=== PATIENT | female | born 1960 | race Caucasian/White ===

== ENCOUNTER → 2016-12-02 | Outpatient (CLI) | payer BC ==
[~2016-12-02] VITALS: Ht 170.2 cm; Wt 81.6 kg
[~2016-12-02] MED LIST: AMLO5TAB2 PO; ASPI81CH PO; ATIV1TAB10 PO; ATOR40TA PO; CYMB1CAP4 PO; LIDOCAINE 2% INJ 100 MG/5 ML SDV (FOR ANES.) As Ordered ONE; MULT1TAB10 PO; PROPOFOL 500 MG/50 ML VIAL As Ordered ONE; PROTPAK PO; VITA-115 PO
--- NOTE | 2016-12-02 11:22 | ROOR ---
Patient Name: Aliya Armendariz Procedure Date: 12/02/2016 10:54 AM Date of : 1960 Age: 56 Room: [facility] Gender: Female Note Status: Finalized Procedure: Colonoscopy Indications: Screening for colorectal malignant neoplasm Providers: Matthew JIMÉNEZ MD Referring MD: Carmella HENLEY MD Requesting Provider: Medicines: Monitored Anesthesia Care Complications: No immediate complications. Procedure: Pre-Anesthesia Assessment: - The heart rate, respiratory rate, oxygen saturations, blood pressure, adequacy of pulmonary ventilation, and response to care were monitored throughout the procedure. The Colonoscope was introduced through the anus and advanced to the cecum, identified by appendiceal orifice and ileocecal valve. The colonoscopy was performed without difficulty. The patient tolerated the procedure well. The quality of the bowel preparation was fair. Findings: The perianal and digital rectal examinations were normal. A 5 mm polyp was found at the hepatic flexure. The polyp was sessile. The polyp was removed with a cold snare. Resection and retrieval were complete. Two sessile polyps were found in the sigmoid colon. The polyps were 5 to 6 mm in size. These polyps were removed with a cold snare. Resection and retrieval were complete. A 7 mm polyp was found in the rectum. The polyp was semi-sessile. The polyp was removed with a cold snare. Resection and retrieval were complete. To prevent bleeding after the polypectomy, two hemostatic clips were successfully placed (MR conditional). Multiple small-mouthed diverticula were found in the sigmoid colon. Internal hemorrhoids were found during retroflexion. The hemorrhoids were medium-sized. (EXAM: Complete, PREP:Adequate) Impression: - One 5 mm polyp at the hepatic flexure, removed with a cold snare. Resected and retrieved. - Two 5 to 6 mm polyps in the sigmoid colon, removed with a cold snare. Resected and retrieved. - One 7 mm polyp in the rectum, removed with a cold snare. Resected and retrieved. Clips (MR conditional) were placed. - Mild diverticulosis in the sigmoid colon. - Moderate Internal hemorrhoids. Recommendation: - Repeat colonoscopy in 3 years for surveillance. - Await pathology results. - Telephone endoscopist for pathology results in 2 weeks. Matthew Jiménez MD Matthew JIMÉNEZ MD 12/02/2016 11:22:23 AM This report has been signed electronically. Number of Addenda: 0 Note Initiated On: 12/02/2016 10:54 AM Estimated Blood Loss: Estimated blood loss: none.
[2016-12-02 11:50] VITALS: BP 150/88
== END ==
LOC: M OPP 09:20
PROVIDERS: ATTEND Internal Medicine Gastroenterology
DX: Z12.11 Encounter for screening for malignant neoplasm of colon (principal); D12.3 Benign neoplasm of transverse colon; D12.5 Benign neoplasm of sigmoid colon; D12.8 Benign neoplasm of rectum; K57.30 Diverticulosis of large intestine without perforation or abscess without bleeding; K62.5 Hemorrhage of anus and rectum; K64.0 First degree hemorrhoids; M25.50 Pain in unspecified joint; I25.2 Old myocardial infarction; E78.5 Hyperlipidemia, unspecified; J45.909 Unspecified asthma, uncomplicated; M19.90 Unspecified osteoarthritis, unspecified site; M32.9 Systemic lupus erythematosus, unspecified; F32.9 Major depressive disorder, single episode, unspecified; M35.1 Other overlap syndromes; R12 Heartburn; M79.7 Fibromyalgia; K44.9 Diaphragmatic hernia without obstruction or gangrene; Z79.82 Long term (current) use of aspirin; Z79.51 Long term (current) use of inhaled steroids; Z86.19 Personal history of other infectious and parasitic diseases; Z79.899 Other long term (current) drug therapy; I10 Essential (primary) hypertension; Z87.891 Personal history of nicotine dependence; F41.9 Anxiety disorder, unspecified; R06.83 Snoring

== ENCOUNTER 2016-12-05 13:56 | Emergency (ER) | payer BC ==
[~2016-12-05 13:56] MED LIST changes: -LIDOCAINE 2% INJ 100 MG/5 ML SDV (FOR ANES.) As Ordered ONE; -PROPOFOL 500 MG/50 ML VIAL As Ordered ONE
[2016-12-05 15:49] LABS: BASO % 0.4 % (0.0-1.0); EOS # 0.1 K/mm3 (0.0-0.50); LARGE UNSTAINED CELL # 0.2 K/mm3 (0.0-0.4); LYMPH # 1.4 K/mm3 (1.5-4.5); LYMPH % 22.6 % (24.0-44.0); MEAN CORPUSCULAR HEMOGLOBIN 31.9 pg (27.0-33.0); MEAN CORPUSCULAR HGB CONC 35.1 g/dl (32.0-36.5); MONO # 0.5 K/mm3 (0.0-0.8); MONO % 8.8 % (0.0-5.0); NEUTROPHILS # 3.9 K/mm3 (1.8-7.7); NEUTROPHILS % 63.2 % (36.0-66.0); PLATELET COUNT, AUTOMATED 195 k/mm3 (150-450); RED CELL DISTRIBUTION WIDTH 11.5 % (11.5-14.5); WHITE BLOOD COUNT 6.1 K/mm3 (4.0-10.0)
[2016-12-05 15:58] LABS: ALBUMIN 3.6 GM/DL (3.2-5.2); ALBUMIN/GLOBULIN RATIO 1.33 (1.00-1.93); ALKALINE PHOSPHATASE 88 U/L (45-117); ALT/SGPT 104 U/L (12-78); ANION GAP 11 MEQ/L (8-16); AST/SGOT 66 U/L (15-37); BILIRUBIN,DIRECT 0.4 MG/DL (0.0-0.2); BILIRUBIN,TOTAL 2.2 MG/DL (0.2-1.0); BLOOD UREA NITROGEN 18 MG/DL (7-18); CALCIUM LEVEL 10.1 MG/DL (8.5-10.1); CARBON DIOXIDE LEVEL 25 MEQ/L (21-32); CHLORIDE LEVEL 106 MEQ/L (98-107); CREATININE FOR GFR 0.66 MG/DL (0.55-1.02); GLOMERULAR FILTRATION RATE > 60.0 (>51); GLUCOSE, FASTING 106 MG/DL (70-105); POTASSIUM SERUM 4.6 MEQ/L (3.5-5.1); SODIUM LEVEL 142 MEQ/L (136-145); TOTAL PROTEIN 6.3 GM/DL (6.4-8.2)
--- NOTE | 2016-12-05 16:41 | REP ---
ABDOMEN, FLAT AND UPRIGHT, PA CHEST: HISTORY: Abdominal pain. Air is present in small and large intestine. Several air fluid levels are present. There are no dilated loops of intestine. There is no pneumoperitoneum. The lungs are clear. IMPRESSION: Nonspecific bowel gas pattern. Signed by Zach Couch MD 12/05/2016 05:06 P
--- NOTE | 2016-12-05 17:29 | REP ---
RIGHT UPPER QUADRANT ULTRASOUND: Real-time sonographic evaluation of the right upper quadrant is performed. Gallbladder shows no evidence of intraluminal sludge or calculi, wall thickening or pericholecystic fluid. There is no intrahepatic or extrahepatic biliary dilatation. Common bile duct measuring 3 mm in diameter. Surveyed images of the liver demonstrate diffuse heterogenous increased echotexture suggesting diffuse fibrofatty infiltration. No liver or pancreatic mass is seen. Pancreas is not optimally seen due to overlying bowel gas. Right kidney demonstrates no hydronephrosis or nephrolithiasis with normal size of 10.8 cm in length. IMPRESSION: Probable fibrofatty infiltration of the liver, otherwise negative right upper quadrant ultrasound. Signed by Siddhartha Silver MD 12/05/2016 05:31 P
[2016-12-05] MEDS ORDERED: ACETAMINOPHEN 325 MG TAB As Ordered ONE (20:39)
--- NOTE | 2016-12-05 21:50 | REPUSA ---
CT of the chest without contrast Clinical statement: cough, fever. Technique: Multiple axial CT images were obtained with 5 mm cuts through the chest without administra tion of contrast. Coronal and sagittal reconstructions were also obtained. No comparison is available. Findings: There is no thoracic lymphadenopathy. The visualized portions of the thyroid gland is unrem arkable. There are no pericardial or pleural effusions. The lungs are clear. Limited imaging of the u pper abdomen does not demonstrate any acute abnormalities. There are no suspicious osseous lesions. Impression: Unremarkable CT examination of the chest.
--- NOTE | 2016-12-05 22:00 | REPUSA ---
CT of the abdomen and pelvis without contrast Clinical statement: Pain. Diverticulitis. Technique: Multiple axial CT images were obtained from the base of the lungs to the floor of the pelv is utilizing 5 mm axial slices without administration of contrast. Coronal and sagittal reconstructio ns were also obtained. No comparison is available. Findings: Chest: The visualized lung bases are clear. Abdomen: The kidneys are normal in size bilaterally. There is a small simple cyst in the lower pole o f the right kidney. There is no evidence of hydronephrosis. A 2 mm nonobstructing stone is seen in th e left kidney. The liver, spleen, pancreas, gallbladder and adrenal glands are unremarkable. The aort a demonstrates normal caliber and contour. There is no abdominal lymphadenopathy or ascites. Pelvis: The bowel is unremarkable, with no obstructive or inflammatory changes. The appendix is michael l. The urinary bladder is within normal limits. There is no pelvic lymphadenopathy or ascites. The ot her pelvic structures appear unremarkable. Bones: There are no suspicious osseous abnormalities seen. Impression: Unremarkable CT examination of the abdomen and pelvis. No acute findings to explain the p atient's pain. 2 mm nonobstructing stone in the left renal collecting system.
--- NOTE | 2016-12-05 22:33 | EDDOCDS ---
Physician Documentation [facility] Name: Aliya Armendariz Age: 56 yrs Sex: Female : 1960 Arrival Date: 12/05/2016 Time: 13:56 Bed 7 Private MD: Carmella De Oliveira M. Disposition: 12/05 22:06 Critical Care: Critical care not applicable. pc Disposition: 12/05/16 22:13 Discharged to Home/Self Care. Impression: Acute upper respiratory infection, unspecified - viral, Dehydration - resolved, Disorder of bilirubin metabolism, unspecified, Fatty (change of) liver, not elsewhere classified. - Condition is Stable. - Discharge Instructions: Upper Respiratory Infection, Adult, Viral Infections. - Medication Reconciliation, Local Pharmacy Hours form. - Follow up: Carmella De Oliveira; When: 2 - 3 days; Reason: Recheck today's complaints, Continuance of care. Follow up: Matthew Palumbo; When: Call to arrange an appointment; Reason: Continuance of care. - Problem is new. - Symptoms have improved. HPI: 15:41 This 56 yrs old Female presents to ER via Walkin/Carried/Asstd with pc complaints of weakness. 15:41 The history is obtained from the patient. She has had URI symptoms, with body aches and pc feeling "generally crappy" for 8 days. She had a colonoscopy only 3 days, while still feeling sick, and has felt worse since. She has occasional white sputum production, but complains mostly of sinus pressure and congestion. She has not had an appetite and did not eat at all yesterday, tolerating minimal po fluids only. This morning she awoke and felt nauseated, vomited once, and none since. She was seen by her PCP who directed her here due to her pulse being fast. She denies any fevers or chills, has occasional abdominal cramping but no diarrhea, denies symptoms. The patient has been recently seen by a technology methodology consultant. Historical: - Allergies: no known allergies; - Home Meds: 1. amlodipine 5 mg Oral tab 1 tab once daily (Last dose: 12/05/2016 07:00) 2. aspirin 81 mg Oral tab 1 tab once daily (Last dose: 12/05/2016 07:00) 3. atorvastatin 40 mg oral tab 1 tab once daily (Last dose: 12/05/2016 07:00) 4. Cymbalta 20 mg Oral cpDR 1 cap 2 times per day (Last dose: 12/05/2016 07:00) 5. Protonix 40 mg Oral TbEC 1 tab once daily (Last dose: 12/05/2016 07:00) - PMHx: Hypertension; Hepatitis B; hyperlipidemia; Depression; GERD; - PSHx: Colonoscopy; bilateral heel spurs; - The history from nurses notes was reviewed: and I agree with what is documented. - Social history: Smoking status: Patient states former smoker of tobacco. No barriers to communication noted, The patient speaks fluent Marshallese. - Family history: Not pertinent. - : The pt / caregiver states he / she is not on anticoagulants. Home medication list is obtained from the patient. - Hospitalizations: : No recent hospitalization is reported. - Exposure Risk Screening:: None identified. - Immunization history:: All immunizations up-to-date. - Social history:: the patient is a non-smoker, the patient does not drink alcohol. ROS: 15:41 All systems are negative except as listed. pc Exam: 15:41 General Appearance: no acute distress, alert. pc 15:41 EENT: normal eye inspection, ears, nose and throat normal, mucous membranes dry. 15:41 Neck: The exam reveals no acute abnormalities. ROM is normal and painless. No nuchal rigidity is noted.. 15:41 Respiratory: no respiratory distress, normal breath sounds. 15:41 CVS: regular rhythm, normal S1 and S2, no murmurs, strong peripheral pulses, normal capillary refill, the patient is tachycardic, at 124 bpm. 15:41 Abdomen: soft, no organomegaly, normal bowel sounds, mild tenderness in the epigastric area, without rebound, voluntary guarding is not appreciated, involuntary guarding is not appreciated. 15:41 Back: normal inspection. 15:41 : bladder is non-distended, non-tender. 15:41 Skin: skin color is normal, warm, dry. 15:41 Extremities: The extremities have a grossly normal appearance, are non-tender, without acute ROM abnormalities. 15:41 Neuro: oriented x 3, cranial nerves normal as tested, no motor deficits, no sensory deficits. 15:41 Psych: normal mood. Vital Signs: 13:59 BP 189 / 80; Pulse 120; Resp 18; Temp 99.1; Pulse Ox 99% ; Weight 83.46 kg / 184 lbs; elp Height 5 ft. 7 in. (170.18 cm); Pain 2/10; 16:34 Pulse 114 MON; Pulse Ox 97% ; jmk 16:49 BP 125 / 79 (auto/); jmk 18:58 BP 143 / 79; Pulse 103; Resp 16; jmk 19:15 BP 128 / 70 (auto/); kmg1 19:15 Pulse 106 MON; Pulse Ox 98% ; kmg1 19:51 BP 141 / 79 (auto/); kmg1 19:51 Pulse 118 MON; Pulse Ox 94% ; kmg1 20:06 BP 138 / 82 (auto/); kmg1 20:06 Pulse 116 MON; Pulse Ox 96% ; kmg1 20:21 BP 120 / 66 (auto/); kmg1 20:21 Pulse 118 MON; Resp 18; Temp 101(TE); Pulse Ox 96% ; kmg1 20:51 BP 145 / 87 (auto/); kmg1 20:51 Pulse 116 MON; Pulse Ox 96% ; kmg1 21:06 BP 133 / 77 (auto/); kmg1 21:06 Pulse 104 MON; Pulse Ox 97% ; kmg1 21:17 Pulse 106 MON; Pulse Ox 98% ; kmg1 21:18 Temp 99.8(TE); kmg1 21:21 BP 159 / 66 (auto/); kmg1 21:21 Pulse 104 MON; Pulse Ox 98% ; kmg1 21:36 BP 138 / 70 (auto/); kmg1 21:36 Pulse 108 MON; Pulse Ox 98% ; kmg1 21:51 BP 131 / 63 (auto/); kmg1 21:51 Pulse 106 MON; Pulse Ox 96% ; kmg1 22:06 BP 136 / 72 (auto/); kmg1 22:06 Pulse 106 MON; Pulse Ox 98% ; kmg1 22:31 BP 120 / 68; Pulse 109; Resp 18; Temp 96.5(O); Pulse Ox 96% on R/A; Pain 0/10; kmg1 13:59 Body Mass Index 28.82 (83.46 kg, 170.18 cm) elp MDM: 14:18 ECG WITH READING ER PHYS+CARDIAG ordered. EDMS 15:40 IV Saline Lock ordered. pc 15:40 Obtain sample by nasopharyngeal swab ordered. pc 15:40 NS 0.9% 1000 ml IV at bolus once ordered. pc 15:41 CBC with Diff Ordered. EDMS 15:41 MED Profile Ordered. EDMS 15:41 Liver Profile Ordered. EDMS 15:41 -Influenza A&B Rapid Antigen - Nose Ordered. EDMS 15:41 Differential Diagnosis: URI r/o pneumonia/influenza; dehydration; s/p colonoscopy. pc Plan: labs, imaging, IVF. 15:43 Abdomen, Flat\\E\\Upright,PA Chest Ordered. EDMS 15:47 Test interpretation: EKG. pc 15:57 CARDIAC MARKER PANEL Ordered. EDMS 16:09 CBC with Diff Reviewed. pc 16:09 MED Profile Reviewed. pc 16:09 Liver Profile Reviewed. pc 16:09 -Influenza A&B Rapid Antigen - Nose Reviewed. pc 16:11 CARDIAC MARKER PANEL Reviewed. pc 16:21 Financial registration complete. zo 16:23 MED Profile Reviewed. pc 16:23 Liver Profile Reviewed. pc 16:23 CARDIAC MARKER PANEL Reviewed. pc 16:26 Liver US Ordered. EDMS 16:36 [facility] Payment Agreement was scanned into [employer] and attached to record. zo 18:01 NS 0.9% 1000 ml IV at bolus once ordered. pc 18:30 Data reviewed: The patient's [facility] records were accessed, as they were informed. pc 20:19 Vital Signs ordered. pc 20:19 Abdomen, Flat\\E\\Upright,PA Chest Reviewed. pc 20:19 Liver US Reviewed. pc 20:38 Acetaminophen Tablet 650 mg PO once ordered. pc 20:40 CT ABD & PELVIS: No Contrast Ordered. EDMS 20:42 CT Chest Without Contrast Ordered. EDMS 22:06 Test interpretation: LAB - all labs as ordered have been reviewed, interpreted and pc considered in the overall management of the clinical presentation; X-RAY - interpreted by Radiologist and personally reviewed, 3-view abdomen series; no acute disease, Ultrasound - interpreted by Radiologist, Gallbladder fatty liver only. 22:06 Test interpretation: interpreted by Radiologist and personally reviewed, Abdomen/Pelvis pc CT; no acute disease, Chest CT; normal. The patient has been re-examined and re-evaluated. The patient's symptoms have markedly improved after treatment, with her tolerating fluids, is afebrile. Disposition: The historical points, examination findings, and any diagnostic results supporting the provided diagnosis, were discussed with the patient or legal guardian. The need for outpatient follow up with the provider listed on their discharge instructions was discussed. They were encouraged to return to [facility], or the nearest ED, if symptoms worsen/persist, or for any other questions/concerns. EC:47 Rate is 115 beats/min. Rhythm is regular, Sinus tachycardia. QRS [place] is Normal. [place] pc interval is normal. QRS interval is normal. QT interval is normal. Q waves are Old in leads III, aVF. T waves are Normal. No ST changes noted. Clinical impression: Sinus tachycardia and Inferior MN - age indeterminate. Administered Medications: 15:43 Drug: NS 0.9% 1000 ml Route: IV; Rate: bolus; Site: right antecubital; [facility] 16:51 Follow up: IV Status: Completed infusion; IV Intake: 1000ml [facility] 18:18 Drug: NS 0.9% 1000 ml Route: IV; Rate: bolus; Site: right antecubital; [facility] 19:27 Follow up: IV Status: Completed infusion; IV Intake: 1000ml [facility] 21:05 Drug: Acetaminophen 650 mg [acetaminophen 325 mg tablet (2 tabs)] Route: PO; kmg1 Signatures: Dispatcher [employer] EDMS Yohan Cummins MD MD pc Garrison, Kelly RN RN km Alvino Rice,JOSEY RN Kayden Jacobson Matthew, RN RN [id number] The chart was reviewed and I authenticate all verbal orders and agree with the evaluation and treatment provided.Corrections: (The following items were deleted from the chart) 15:57 15:50 CARDIAC INJURY PROFILE+LAB ordered. EDTN EDTN 15:57 15:50 TROPONIN+LAB ordered. EDTN EDMS Attachments: 16:36 [facility] Payment Agreement zo [employer]
--- NOTE | 2016-12-05 22:33 | EDDOCDS ---
Nurse's Notes [facility] Name: Aliya Armendariz Age: 56 yrs Sex: Female : 1960 Arrival Date: 12/05/2016 Time: 13:56 Bed 7 Private MD: Carmella De Oliveira M. Diagnosis: Acute upper respiratory infection, unspecified-viral;Dehydration-resolved;Disorder of bilirubin metabolism, unspecified;Fatty (change of) liver, not elsewhere classified Presentation: 12/05 14:02 Presenting complaint: Patient states: states that she had a colonoscopy Thursday, states ml6 that felt nauseated, and diaphoretic, advised to come here. Adult Sepsis Screening: The patient does not have new or worsening altered mentation. Patient's respiratory rate is less than 22. Systolic blood pressure is greater than 100. Patient has a qSOFA score of 0- Negative Sepsis Screen. Suicide/Homicide risk assessment- the patient denies having any suicidal and/or homicidal ideations and does not present with any other emotional, behavioral or mental health complaints. Status: Patient is not a pest control service technician or dependent. Transition of care: patient was not received from another setting of care. 14:02 Acuity: ELIA Level 3 ml6 14:02 Method Of Arrival: Walkin/Carried/Asstd ml6 Triage Assessment: 14:02 General: Appears in no apparent distress, comfortable, Behavior is appropriate for age, ml6 cooperative. Pain: Denies pain. HIV screening NA for this visit Offered previously. Neurological: No deficits noted. Level of Consciousness is awake, alert, Oriented to person, place, time. Cardiovascular: No deficits noted. Capillary refill < 3 seconds is brisk in bilateral fingers toes Heart tones S1 S2 present. Respiratory: No deficits noted. Historical: - Allergies: no known allergies; - Home Meds: 1. amlodipine 5 mg Oral tab 1 tab once daily (Last dose: 12/05/2016 07:00) 2. aspirin 81 mg Oral tab 1 tab once daily (Last dose: 12/05/2016 07:00) 3. atorvastatin 40 mg oral tab 1 tab once daily (Last dose: 12/05/2016 07:00) 4. Cymbalta 20 mg Oral cpDR 1 cap 2 times per day (Last dose: 12/05/2016 07:00) 5. Protonix 40 mg Oral TbEC 1 tab once daily (Last dose: 12/05/2016 07:00) - PMHx: Hypertension; Hepatitis B; hyperlipidemia; Depression; GERD; - PSHx: Colonoscopy; bilateral heel spurs; - The history from nurses notes was reviewed: and I agree with what is documented. - Social history: Smoking status: Patient states former smoker of tobacco. No barriers to communication noted, The patient speaks fluent Romansh. - Family history: Not pertinent. - : The pt / caregiver states he / she is not on anticoagulants. Home medication list is obtained from the patient. - Hospitalizations: : No recent hospitalization is reported. - Exposure Risk Screening:: None identified. - Immunization history:: All immunizations up-to-date. - Social history:: the patient is a non-smoker, the patient does not drink alcohol. Screenin:01 Screening information is obtained from the patient. Fall risk: No risks identified. jmk Assistance ADL's: requires no assistance with activities of daily living. Abuse/DV Screen: The patient / caregiver reports he/she is: not in a situation that causes fear, pain or injury. Nutritional screening: No deficits noted. home support is adequate. 15:01 Advance Directives: Currently, there is no health care proxy. There is no active DNR jmk order. There is no living will. There is no Power of Manager Of Application Development. Advance directive information has not previously been placed in an [facility] medical record. Further advance directive information is declined. Assessment: 15:01 General: Appears in no apparent distress, skin warm and dry color satisfactory. Moist jmk pink oral mucosa. Abdomen soft and non distended with bowel sounds present x 4. slight fullness to upper abdomen with palpation. Monitor is st without ectopy. Unaware of rapid heart rate at 118.. 16:49 General: Appears bolus infused. Overall presentation is unchanged. Monitor is SR jmk without ectopy. remains jovial and conversive.. 18:58 General: Appears popsicle taken and retained. Bolus continues.. jmk 19:25 General: Appears in no apparent distress, comfortable, Behavior is appropriate for age, kmg1 cooperative, pleasant. Pain: Denies pain. Cardiovascular: Rhythm is sinus tachycardia No ectopy. Respiratory: Airway is patent Respiratory effort is even, unlabored, Respiratory pattern is regular, symmetrical. 20:30 General: Appears in no apparent distress, comfortable, Behavior is crying, Patient kmg1 tearful. Diaphoretic. Temp 101. made aware. 21:30 Reassessment: Patient appears in no apparent distress at this time. Patient denies pain kmg1 at this time. Patient states feeling better. Patient states symptoms have improved. 22:29 General: Appears in no apparent distress, comfortable, Behavior is appropriate for age, kmg1 cooperative, pleasant. Pain: Denies pain. Cardiovascular: Rhythm is sinus tachycardia No ectopy. Respiratory: Airway is patent Respiratory effort is even, unlabored, Respiratory pattern is regular, symmetrical. Vital Signs: 13:59 BP 189 / 80; Pulse 120; Resp 18; Temp 99.1; Pulse Ox 99% ; Weight 83.46 kg; Height 5 elp ft. 7 in. (170.18 cm); Pain 2/10; 16:34 Pulse 114 MON; Pulse Ox 97% ; jmk 16:49 BP 125 / 79 (auto/); jmk 18:58 BP 143 / 79; Pulse 103; Resp 16; jmk 19:15 BP 128 / 70 (auto/); kmg1 19:15 Pulse 106 MON; Pulse Ox 98% ; kmg1 19:51 BP 141 / 79 (auto/); kmg1 19:51 Pulse 118 MON; Pulse Ox 94% ; kmg1 20:06 BP 138 / 82 (auto/); kmg1 20:06 Pulse 116 MON; Pulse Ox 96% ; kmg1 20:21 BP 120 / 66 (auto/); kmg1 20:21 Pulse 118 MON; Resp 18; Temp 101(TE); Pulse Ox 96% ; kmg1 20:51 BP 145 / 87 (auto/); kmg1 20:51 Pulse 116 MON; Pulse Ox 96% ; kmg1 21:06 BP 133 / 77 (auto/); kmg1 21:06 Pulse 104 MON; Pulse Ox 97% ; kmg1 21:17 Pulse 106 MON; Pulse Ox 98% ; kmg1 21:18 Temp 99.8(TE); kmg1 21:21 BP 159 / 66 (auto/); kmg1 21:21 Pulse 104 MON; Pulse Ox 98% ; kmg1 21:36 BP 138 / 70 (auto/); kmg1 21:36 Pulse 108 MON; Pulse Ox 98% ; kmg1 21:51 BP 131 / 63 (auto/); kmg1 21:51 Pulse 106 MON; Pulse Ox 96% ; kmg1 22:06 BP 136 / 72 (auto/); g1 22:06 Pulse 106 MON; Pulse Ox 98% ; g1 22:31 BP 120 / 68; Pulse 109; Resp 18; Temp 96.5(O); Pulse Ox 96% on R/A; Pain 0/10; kmg1 13:59 Body Mass Index 28.82 (83.46 kg, 170.18 cm) elp Vitals: 13:59 Log In Time: December 05, 2016 at 13:57. RN notified that patient meets Red Flag elp criteria. ED Course: 13:58 Patient visited by Chinyere Okeefe PCA. elp 13:58 Carmella De Oliveira is Private Physician. elp 13:58 Patient moved to Waiting elp 14:01 Patient visited by Chinyere Okeefe PCA. elp 14:06 Patient moved to 7 elp 14:13 Triage Initiated ml6 14:29 EKG done. (by ED staff). Reviewed by Santy Monzon MD. jrd 14:30 Patient visited by Horace Villalobos PCA. jrd 15:01 The patient / caregiver is instructed regarding the plan of care and ED course. Cardiac jmk monitor on. Pulse ox on. 15:01 Inserted saline lock: 20 gauge in right antecubital area. No procedures done that jmk require assistance. 15:10 Patient visited by Lily Diaz, JOSEY. jjr 15:21 Yohan Cummins MD is Attending Physician. pc 15:36 Patient visited by Yohan Cummins MD. pc 15:43 Liver Profile Sent. jmk 15:43 MED Profile Sent. jmk 15:43 CBC with Diff Sent. jmk 15:48 -Influenza A&B Rapid Antigen - Nose Sent. jmk 16:32 Patient moved to Ultrasound am17 16:36 [facility] Payment Agreement was scanned into [employer] and attached to record. zo 16:47 Patient moved to 7 am17 16:48 Patient visited by Yohan Cummins MD. pc 16:50 Patient visited by Alvino Rice,JOSEY. jmk 17:02 Abdomen, Flat\E\Upright,PA Chest Returned. EDMS 17:50 Liver US Returned. EDMS 18:07 Patient visited by Yohan Cummins MD. pc 19:07 Patient visited by Harlan Chowdhury PCA. kb5 19:08 Sandee Wilson RN is Primary Nurse. kmg1 19:27 Patient visited by Sandee Wilson RN. kmg1 20:06 Patient visited by Harlan Chowdhury PCA. kb5 21:02 Patient visited by Harlan Chowdhury PCA. kb5 22:00 CT Chest Without Contrast Returned. EDMS 22:06 Patient visited by Yohan Cummins MD. pc 22:12 Carmella De Oliveira is Referral Physician. pc 22:12 Matthew Palumbo is Referral Physician. pc Administered Medications: 15:43 Drug: NS 0.9% 1000 ml Route: IV; Rate: bolus; Site: right antecubital; jmk 16:51 Follow up: IV Status: Completed infusion; IV Intake: 1000ml jmk 18:18 Drug: NS 0.9% 1000 ml Route: IV; Rate: bolus; Site: right antecubital; jmk 19:27 Follow up: IV Status: Completed infusion; IV Intake: 1000ml kmg1 21:05 Drug: Acetaminophen 650 mg [acetaminophen 325 mg tablet (2 tabs)] Route: PO; km Intake: 16:51 IV: 1000.00ml (NS); Total: 1000.00ml. jmk 16:51 IV: 1000.00ml; Total: 2000.00ml. jmk 19:27 IV: 1000.00ml; Total: 3000.00ml. km Order Results: Lab Order: CBC with Diff; SPEC'M 12/05/16 14:52 Test: WHITE BLOOD COUNT; Value: 6.1; Range: 4.0-10.0; Units: K/mm3; Status: F Test: RED BLOOD COUNT; Value: 4.23; Range: 4.00-5.40; Units: M/mm3; Status: F Test: HEMOGLOBIN; Value: 13.5; Range: 12.0-16.0; Units: g/dl; Status: F Test: HEMATOCRIT; Value: 38.5; Range: 36.0-47.0; Units: %; Status: F Test: MEAN CORPUSCULAR VOLUME; Value: 91.0; Range: 80.0-96.0; Units: fl; Status: F Test: MEAN CORPUSCULAR HEMOGLOBIN; Value: 31.9; Range: 27.0-33.0; Units: pg; Status: F Test: MEAN CORPUSCULAR HGB CONC; Value: 35.1; Range: 32.0-36.5; Units: g/dl; Status: F Test: RED CELL DISTRIBUTION WIDTH; Value: 11.5; Range: 11.5-14.5; Units: %; Status: F Test: PLATELET COUNT, AUTOMATED; Value: 195; Range: 150-450; Units: k/mm3; Status: F Test: NEUTROPHILS %; Value: 63.2; Range: 36.0-66.0; Units: %; Status: F Test: LYMPH %; Value: 22.6; Range: 24.0-44.0; Abnormal: Below low normal; Units: %; Status: F Test: MONO %; Value: 8.8; Range: 0.0-5.0; Abnormal: Above high normal; Units: %; Status: F Test: EOS %; Value: 2.0; Range: 0.0-3.0; Units: %; Status: F Test: BASO %; Value: 0.4; Range: 0.0-1.0; Units: %; Status: F Test: LARGE UNSTAINED CELL %; Value: 3.0; Range: 0.0-4.0; Units: %; Status: F Test: NEUTROPHILS #; Value: 3.9; Range: 1.8-7.7; Units: K/mm3; Status: F Test: LYMPH #; Value: 1.4; Range: 1.5-4.5; Abnormal: Below low normal; Units: K/mm3; Status: F Test: MONO #; Value: 0.5; Range: 0.0-0.8; Units: K/mm3; Status: F Test: EOS #; Value: 0.1; Range: 0.0-0.50; Units: K/mm3; Status: F Test: BASO #; Value: 0.0; Range: 0.0-0.2; Units: K/mm3; Status: F Test: LARGE UNSTAINED CELL #; Value: 0.2; Range: 0.0-0.4; Units: K/mm3; Status: F Lab Order: MED Profile; SPEC'M 12/05/16 14:52 Test: GLUCOSE, FASTING; Value: 106; Range: 70-105; Abnormal: Above high normal; Units: MG/DL; Status: F Test: BLOOD UREA NITROGEN; Value: 18; Range: 7-18; Units: MG/DL; Status: F Test: CREATININE FOR GFR; Value: 0.66; Range: 0.55-1.02; Units: MG/DL; Status: F Test: GLOMERULAR FILTRATION RATE; Value: > 60.0; Range: >51; Status: F Test: SODIUM LEVEL; Value: 142; Range: 136-145; Units: MEQ/L; Status: F Test: POTASSIUM SERUM; Value: 4.6; Range: 3.5-5.1; Units: MEQ/L; Status: F Test: CHLORIDE LEVEL; Value: 106; Range: 98-107; Units: MEQ/L; Status: F Test: CARBON DIOXIDE LEVEL; Value: 25; Range: 21-32; Units: MEQ/L; Status: F Test: ANION GAP; Value: 11; Range: 8-16; Units: MEQ/L; Status: F Test: CALCIUM LEVEL; Value: 10.1; Range: 8.5-10.1; Units: MG/DL; Status: F Test Note: ; Units are mL/min/1.73 m2 Chronic Kidney Disease Staging per NKF: Stage I & II GFR >=60 Normal to Mildly Decreased Stage III GFR 30-59 Moderately Decreased Stage IV GFR 15-29 Severely Decreased Stage V GFR <15 Very Little GFR Left ESRD GFR <15 on SERVICES MGR Lab Order: Liver Profile; SPEC'M 12/05/16 14:52 Test: AST/SGOT; Value: 66; Range: 15-37; Abnormal: Above high normal; Units: U/L; Status: F Test: ALT/SGPT; Value: 104; Range: 12-78; Abnormal: Above high normal; Units: U/L; Status: F Test: ALKALINE PHOSPHATASE; Value: 88; Range: 45-117; Units: U/L; Status: F Test: BILIRUBIN,TOTAL; Value: 2.2; Range: 0.2-1.0; Abnormal: Above high normal; Units: MG/DL; Status: F Test: BILIRUBIN,DIRECT; Value: 0.4; Range: 0.0-0.2; Abnormal: Above high normal; Units: MG/DL; Status: F Test: TOTAL PROTEIN; Value: 6.3; Range: 6.4-8.2; Abnormal: Below low normal; Units: GM/DL; Status: F Test: ALBUMIN; Value: 3.6; Range: 3.2-5.2; Units: GM/DL; Status: F Test: ALBUMIN/GLOBULIN RATIO; Value: 1.33; Range: 1.00-1.93; Status: F Lab Order: -Influenza A&B Rapid Antigen - Nose; SPEC'M 12/05/16 15:47 Test: INFLUENZA A RAPID SCR by ICA; Value: INFLUENZA A RESULTS NEGATIVE; Status: F Test: INFLUENZA A RAPID SCR by ICA; Value: Comments:; Status: F Test: INFLUENZA B RAPID SCR by ICA; Value: INFLUENZA B RESULTS NEGATIVE; Status: F Test Note: ; The Influenza test is a direct rapid immunoassay for the qualitative detection of Influenza viral antigen. Cell culture (Viral Culture) testing should be considered to confirm NEGATIVE results and to assist in detecting other viruses that can provide similar clinical symptoms. Please contact the lab within 24 hours ([phone] if confirmatory testing is desired. Lab Order: CARDIAC MARKER PANEL; SPEC'M 12/05/16 14:52 Test: CPK CREATINE PHOSPHOKINASE; Value: 84; Range: 26-192; Units: U/L; Status: F Test: CK-MB VALUE MASS; Value: 1.0; Range: 0.0-3.6; Units: NG/ML; Status: F Test: MB/CK RELATIVE INDEX; Value: 1.19; Range: < OR =4; Status: F Test: TROPONIN I; Value: < 0.02; Range: < 0.10; Units: NG/ML; Status: F Test Note: ; DIAGNOSIS CRITERIA MMB ng/ml Relative Index (RI) NON-AMI < or = 5 N/A SILVER ZONE > 5 < or = 4 AMI > 5 > 4 Radiology Order: Abdomen, Flat\E\Upright,PA Chest Test: Abdomen, Flat\E\Upright,PA Chest REASON FOR EXAMINATION: abd pain after colonoscopy; ABDOMEN, FLAT AND UPRIGHT, PA CHEST:; ; HISTORY: Abdominal pain.; ; Air is present in small and large intestine. Several air fluid levels are; present. There are no dilated loops of intestine. There is no pneumoperitoneum.; The lungs are clear.; ; IMPRESSION:; ; Nonspecific bowel gas pattern.; ; ; Signed by; Zach Couch MD 12/05/2016 05:06 P; Radiology Order: Liver US Test: Liver US REASON FOR EXAMINATION: elevated LFTs; RIGHT UPPER QUADRANT ULTRASOUND:; ; Real-time sonographic evaluation of the right upper quadrant is performed.; Gallbladder shows no evidence of intraluminal sludge or calculi, wall thickening; or pericholecystic fluid. There is no intrahepatic or extrahepatic biliary; dilatation. Common bile duct measuring 3 mm in diameter. Surveyed images of the; liver demonstrate diffuse heterogenous increased echotexture suggesting diffuse; fibrofatty infiltration. No liver or pancreatic mass is seen. Pancreas is not; optimally seen due to overlying bowel gas. Right kidney demonstrates no; hydronephrosis or nephrolithiasis with normal size of 10.8 cm in length.; ; IMPRESSION:; ; Probable fibrofatty infiltration of the liver, otherwise negative right upper; quadrant ultrasound.; ; ; Signed by; Siddhartha Silver MD 12/05/2016 05:31 P; Radiology Order: CT Chest Without Contrast Test: CT Chest Without Contrast REASON FOR EXAMINATION: cough, fever; ; CT of the chest without contrast; Clinical statement: cough, fever.; Technique: Multiple axial CT images were obtained with 5 mm cuts through the chest without administra; tion of contrast. Coronal and sagittal reconstructions were also obtained.; No comparison is available.; Findings: There is no thoracic lymphadenopathy. The visualized portions of the thyroid gland is unrem; arkable. There are no pericardial or pleural effusions. The lungs are clear. Limited imaging of the u; pper abdomen does not demonstrate any acute abnormalities. There are no suspicious osseous lesions.; Impression: Unremarkable CT examination of the chest.; ; Outcome: 22:13 Discharge ordered by Provider. pc 22:31 Discharge Assessment: Patient awake, alert and oriented x 3. No cognitive and/or kmg1 functional deficits noted. Patient verbalized understanding of disposition instructions. Patient awake and alert. patient administered narcotics - no. The following High Risk Discharge criteria are identified: None. Discharged to home ambulatory, with significant other. Condition: stable. CT Study completed. Ultrasound Study completed. Property sent home with patient. 22:32 Patient left the ED. [facility] [place] Signatures: Dispatcher [employer] EDMS Yohan Cummins MD MD pc Garrison, Kelly, RN RN km Alvino Rice,RN RN [facility] Kayden Raza Kristopher, VINEYARDIST VINEYARDIST kb5 Lily Diaz RN RN jjr Lowe, Matthew RN RN ml6 Chinyere Okeefe, VINEYARDIST VINEYARDIST denip Bebe Becker am17 Horace Villalobos, VINEYARDIST VINEYARDIST jrd Corrections: (The following items were deleted from the chart) 15:57 15:50 TROPONIN+LAB sent. [facility] EDWV 15:57 15:50 CARDIAC INJURY PROFILE+LAB sent. [facility] EDWV 20:38 20:21 Pulse 118bpm; Monitor; Pulse Ox 96%; [place] [id number] [facility]
--- NOTE | 2016-12-06 08:35 | ECGEPIP ---
Stationary ECG Study [facility] - ED Test Date: 2016-12-05 Pat Name: ANETA WILD Department: Room: - Gender: F Director Financial Services: albert : 1960 Requested By: QUINTON Pride Order Number: [id number] Reading MD: Nicolle Rueda Measurements Intervals [place] Rate: 116 P: 56 TX: 148 QRS: 6 QRSD: 64 T: 27 QT: 286 QTc: 399 Interpretive Statements SINUS TACHYCARDIA ?INFERIOR AL AGE NO PRIOR FOR COMPARISON ABNORMAL RHYTHM ECG Electronically Signed On 12-06-2016 8:35:10 EST by Nicolle Rueda
--- NOTE | 2016-12-09 10:05 | EDDOCDS ---
Physician Documentation [facility] Name: Aliya Armendariz Age: 56 yrs Sex: Female : 1960 Arrival Date: 12/05/2016 Time: 13:56 Bed 7 Private MD: Carmella De Oliveira M. Disposition: 12/05 22:06 Critical Care: Critical care not applicable. pc Disposition: 12/05/16 22:13 Discharged to Home/Self Care. Impression: Acute upper respiratory infection, unspecified - viral, Dehydration - resolved, Disorder of bilirubin metabolism, unspecified, Fatty (change of) liver, not elsewhere classified. - Condition is Stable. - Discharge Instructions: Upper Respiratory Infection, Adult, Viral Infections. - Medication Reconciliation, Local Pharmacy Hours form. - Follow up: Carmella De Oliveira; When: 2 - 3 days; Reason: Recheck today's complaints, Continuance of care. Follow up: Matthew Palumbo; When: Call to arrange an appointment; Reason: Continuance of care. - Problem is new. - Symptoms have improved. HPI: 15:41 This 56 yrs old Female presents to ER via Walkin/Carried/Asstd with pc complaints of weakness. 15:41 The history is obtained from the patient. She has had URI symptoms, with body aches and pc feeling "generally crappy" for 8 days. She had a colonoscopy only 3 days, while still feeling sick, and has felt worse since. She has occasional white sputum production, but complains mostly of sinus pressure and congestion. She has not had an appetite and did not eat at all yesterday, tolerating minimal po fluids only. This morning she awoke and felt nauseated, vomited once, and none since. She was seen by her PCP who directed her here due to her pulse being fast. She denies any fevers or chills, has occasional abdominal cramping but no diarrhea, denies symptoms. The patient has been recently seen by a residential builder. Historical: - Allergies: no known allergies; - Home Meds: 1. amlodipine 5 mg Oral tab 1 tab once daily (Last dose: 12/05/2016 07:00) 2. aspirin 81 mg Oral tab 1 tab once daily (Last dose: 12/05/2016 07:00) 3. atorvastatin 40 mg oral tab 1 tab once daily (Last dose: 12/05/2016 07:00) 4. Cymbalta 20 mg Oral cpDR 1 cap 2 times per day (Last dose: 12/05/2016 07:00) 5. Protonix 40 mg Oral TbEC 1 tab once daily (Last dose: 12/05/2016 07:00) - PMHx: Hypertension; Hepatitis B; hyperlipidemia; Depression; GERD; - PSHx: Colonoscopy; bilateral heel spurs; - The history from nurses notes was reviewed: and I agree with what is documented. - Social history: Smoking status: Patient states former smoker of tobacco. No barriers to communication noted, The patient speaks fluent [place]. - Family history: Not pertinent. - : The pt / caregiver states he / she is not on anticoagulants. Home medication list is obtained from the patient. - Hospitalizations: : No recent hospitalization is reported. - Exposure Risk Screening:: None identified. - Immunization history:: All immunizations up-to-date. - Social history:: the patient is a non-smoker, the patient does not drink alcohol. ROS: 15:41 All systems are negative except as listed. pc Exam: 15:41 General Appearance: no acute distress, alert. pc 15:41 EENT: normal eye inspection, ears, nose and throat normal, mucous membranes dry. 15:41 Neck: The exam reveals no acute abnormalities. ROM is normal and painless. No nuchal rigidity is noted.. 15:41 Respiratory: no respiratory distress, normal breath sounds. 15:41 CVS: regular rhythm, normal S1 and S2, no murmurs, strong peripheral pulses, normal capillary refill, the patient is tachycardic, at 124 bpm. 15:41 Abdomen: soft, no organomegaly, normal bowel sounds, mild tenderness in the epigastric area, without rebound, voluntary guarding is not appreciated, involuntary guarding is not appreciated. 15:41 Back: normal inspection. 15:41 : bladder is non-distended, non-tender. 15:41 Skin: skin color is normal, warm, dry. 15:41 Extremities: The extremities have a grossly normal appearance, are non-tender, without acute ROM abnormalities. 15:41 Neuro: oriented x 3, cranial nerves normal as tested, no motor deficits, no sensory deficits. 15:41 Psych: normal mood. Vital Signs: 13:59 BP 189 / 80; Pulse 120; Resp 18; Temp 99.1; Pulse Ox 99% ; Weight 83.46 kg / 184 lbs; elp Height 5 ft. 7 in. (170.18 cm); Pain 2/10; 16:34 Pulse 114 MON; Pulse Ox 97% ; jmk 16:49 BP 125 / 79 (auto/); jmk 18:58 BP 143 / 79; Pulse 103; Resp 16; jmk 19:15 BP 128 / 70 (auto/); kmg1 19:15 Pulse 106 MON; Pulse Ox 98% ; kmg1 19:51 BP 141 / 79 (auto/); kmg1 19:51 Pulse 118 MON; Pulse Ox 94% ; kmg1 20:06 BP 138 / 82 (auto/); kmg1 20:06 Pulse 116 MON; Pulse Ox 96% ; kmg1 20:21 BP 120 / 66 (auto/); kmg1 20:21 Pulse 118 MON; Resp 18; Temp 101(TE); Pulse Ox 96% ; kmg1 20:51 BP 145 / 87 (auto/); kmg1 20:51 Pulse 116 MON; Pulse Ox 96% ; kmg1 21:06 BP 133 / 77 (auto/); kmg1 21:06 Pulse 104 MON; Pulse Ox 97% ; kmg1 21:17 Pulse 106 MON; Pulse Ox 98% ; kmg1 21:18 Temp 99.8(TE); kmg1 21:21 BP 159 / 66 (auto/); kmg1 21:21 Pulse 104 MON; Pulse Ox 98% ; kmg1 21:36 BP 138 / 70 (auto/); kmg1 21:36 Pulse 108 MON; Pulse Ox 98% ; kmg1 21:51 BP 131 / 63 (auto/); kmg1 21:51 Pulse 106 MON; Pulse Ox 96% ; kmg1 22:06 BP 136 / 72 (auto/); kmg1 22:06 Pulse 106 MON; Pulse Ox 98% ; kmg1 22:31 BP 120 / 68; Pulse 109; Resp 18; Temp 96.5(O); Pulse Ox 96% on R/A; Pain 0/10; kmg1 13:59 Body Mass Index 28.82 (83.46 kg, 170.18 cm) elp MDM: 14:18 ECG WITH READING ER PHYS+CARDIAG ordered. EDMS 15:40 IV Saline Lock ordered. pc 15:40 Obtain sample by nasopharyngeal swab ordered. pc 15:40 NS 0.9% 1000 ml IV at bolus once ordered. pc 15:41 CBC with Diff Ordered. EDMS 15:41 MED Profile Ordered. EDMS 15:41 Liver Profile Ordered. EDMS 15:41 -Influenza A&B Rapid Antigen - Nose Ordered. EDMS 15:41 Differential Diagnosis: URI r/o pneumonia/influenza; dehydration; s/p colonoscopy. pc Plan: labs, imaging, IVF. 15:43 Abdomen, Flat\\E\\Upright,PA Chest Ordered. EDMS 15:47 Test interpretation: EKG. pc 15:57 CARDIAC MARKER PANEL Ordered. EDMS 16:09 CBC with Diff Reviewed. pc 16:09 MED Profile Reviewed. pc 16:09 Liver Profile Reviewed. pc 16:09 -Influenza A&B Rapid Antigen - Nose Reviewed. pc 16:11 CARDIAC MARKER PANEL Reviewed. pc 16:21 Financial registration complete. zo 16:23 MED Profile Reviewed. pc 16:23 Liver Profile Reviewed. pc 16:23 CARDIAC MARKER PANEL Reviewed. pc 16:26 Liver US Ordered. EDMS 16:36 [facility] Payment Agreement was scanned into [employer] and attached to record. zo 18:01 NS 0.9% 1000 ml IV at bolus once ordered. pc 18:30 Data reviewed: The patient's [facility] records were accessed, as they were informed. pc 20:19 Vital Signs ordered. pc 20:19 Abdomen, Flat\\E\\Upright,PA Chest Reviewed. pc 20:19 Liver US Reviewed. pc 20:38 Acetaminophen Tablet 650 mg PO once ordered. pc 20:40 CT ABD & PELVIS: No Contrast Ordered. EDMS 20:42 CT Chest Without Contrast Ordered. EDMS 22:06 Test interpretation: LAB - all labs as ordered have been reviewed, interpreted and pc considered in the overall management of the clinical presentation; X-RAY - interpreted by Radiologist and personally reviewed, 3-view abdomen series; no acute disease, Ultrasound - interpreted by Radiologist, Gallbladder fatty liver only. 22:06 Test interpretation: interpreted by Radiologist and personally reviewed, Abdomen/Pelvis pc CT; no acute disease, Chest CT; normal. The patient has been re-examined and re-evaluated. The patient's symptoms have markedly improved after treatment, with her tolerating fluids, is afebrile. Disposition: The historical points, examination findings, and any diagnostic results supporting the provided diagnosis, were discussed with the patient or legal guardian. The need for outpatient follow up with the provider listed on their discharge instructions was discussed. They were encouraged to return to [facility], or the nearest ED, if symptoms worsen/persist, or for any other questions/concerns. 12/06 10:27 ECG/EKG was scanned into [employer] and attached to record. 10:28 Radiology Report was scanned into [employer] and attached to record. EC/06 15:47 Rate is 115 beats/min. Rhythm is regular, Sinus tachycardia. QRS [place] is Normal. ID pc interval is normal. QRS interval is normal. QT interval is normal. Q waves are Old in leads III, aVF. T waves are Normal. No ST changes noted. Clinical impression: Sinus tachycardia and Inferior PA - age indeterminate. Administered Medications: 15:43 Drug: NS 0.9% 1000 ml Route: IV; Rate: bolus; Site: right antecubital; [facility] 16:51 Follow up: IV Status: Completed infusion; IV Intake: 1000ml [facility] 18:18 Drug: NS 0.9% 1000 ml Route: IV; Rate: bolus; Site: right antecubital; [facility] 19:27 Follow up: IV Status: Completed infusion; [place] [facility] [place] Drug: Acetaminophen 650 mg [acetaminophen 325 mg tablet (2 tabs)] Route: PO; kmg1 Signatures: Dispatcher [employer] EDMS Yohan Cummins MD MD pc Garrison, Kelly, RN RN kmg1 Alvino Rice,RN RN Kyleigh Reeves, Kayden Kitchen Matthew, RN RN ml6 The chart was reviewed and I authenticate all verbal orders and agree with the evaluation and treatment provided.Corrections: (The following items were deleted from the chart) 15:57 15:50 CARDIAC INJURY PROFILE+LAB ordered. EDAL EDMS 15:57 15:50 TROPONIN+LAB ordered. EDAL EDMS Attachments: 16:36 [facility] [place] Payment Agreement zo 12/06 10:27 ECG/EKG Chart Complete MTDD
--- NOTE | 2016-12-09 10:05 | EDDOCDS ---
Nurse's Notes [facility] Name: Aneta Armendariz Age: 56 yrs Sex: Female : 1960 Arrival Date: 12/05/2016 Time: 13:56 Bed 7 Private MD: Carmella De Oliveira M. Diagnosis: Acute upper respiratory infection, unspecified-viral;Dehydration-resolved;Disorder of bilirubin metabolism, unspecified;Fatty (change of) liver, not elsewhere classified Presentation: 12/05 14:02 Presenting complaint: Patient states: states that she had a colonoscopy Thursday, states ml6 that felt nauseated, and diaphoretic, advised to come here. Adult Sepsis Screening: The patient does not have new or worsening altered mentation. Patient's respiratory rate is less than 22. Systolic blood pressure is greater than 100. Patient has a qSOFA score of 0- Negative Sepsis Screen. Suicide/Homicide risk assessment- the patient denies having any suicidal and/or homicidal ideations and does not present with any other emotional, behavioral or mental health complaints. Status: Patient is not a service attendant cafeteria or dependent. Transition of care: patient was not received from another setting of care. 14:02 Acuity: ELIA Level 3 ml6 14:02 Method Of Arrival: Walkin/Carried/Asstd ml6 Triage Assessment: 14:02 General: Appears in no apparent distress, comfortable, Behavior is appropriate for age, ml6 cooperative. Pain: Denies pain. HIV screening NA for this visit Offered previously. Neurological: No deficits noted. Level of Consciousness is awake, alert, Oriented to person, place, time. Cardiovascular: No deficits noted. Capillary refill < 3 seconds is brisk in bilateral fingers toes Heart tones S1 S2 present. Respiratory: No deficits noted. Historical: - Allergies: no known allergies; - Home Meds: 1. amlodipine 5 mg Oral tab 1 tab once daily (Last dose: 12/05/2016 07:00) 2. aspirin 81 mg Oral tab 1 tab once daily (Last dose: 12/05/2016 07:00) 3. atorvastatin 40 mg oral tab 1 tab once daily (Last dose: 12/05/2016 07:00) 4. Cymbalta 20 mg Oral cpDR 1 cap 2 times per day (Last dose: 12/05/2016 07:00) 5. Protonix 40 mg Oral TbEC 1 tab once daily (Last dose: 12/05/2016 07:00) - PMHx: Hypertension; Hepatitis B; hyperlipidemia; Depression; GERD; - PSHx: Colonoscopy; bilateral heel spurs; - The history from nurses notes was reviewed: and I agree with what is documented. - Social history: Smoking status: Patient states former smoker of tobacco. No barriers to communication noted, The patient speaks fluent Slovak. - Family history: Not pertinent. - : The pt / caregiver states he / she is not on anticoagulants. Home medication list is obtained from the patient. - Hospitalizations: : No recent hospitalization is reported. - Exposure Risk Screening:: None identified. - Immunization history:: All immunizations up-to-date. - Social history:: the patient is a non-smoker, the patient does not drink alcohol. Screenin:01 Screening information is obtained from the patient. Fall risk: No risks identified. jmk Assistance ADL's: requires no assistance with activities of daily living. Abuse/DV Screen: The patient / caregiver reports he/she is: not in a situation that causes fear, pain or injury. Nutritional screening: No deficits noted. home support is adequate. 15:01 Advance Directives: Currently, there is no health care proxy. There is no active DNR jmk order. There is no living will. There is no Power of Hvac Design Mechanical Engineer. Advance directive information has not previously been placed in an [facility] medical record. Further advance directive information is declined. Assessment: 15:01 General: Appears in no apparent distress, skin warm and dry color satisfactory. Moist jmk pink oral mucosa. Abdomen soft and non distended with bowel sounds present x 4. slight fullness to upper abdomen with palpation. Monitor is st without ectopy. Unaware of rapid heart rate at 118.. 16:49 General: Appears bolus infused. Overall presentation is unchanged. Monitor is SR jmk without ectopy. remains jovial and conversive.. 18:58 General: Appears popsicle taken and retained. Bolus continues.. jmk 19:25 General: Appears in no apparent distress, comfortable, Behavior is appropriate for age, kmg1 cooperative, pleasant. Pain: Denies pain. Cardiovascular: Rhythm is sinus tachycardia No ectopy. Respiratory: Airway is patent Respiratory effort is even, unlabored, Respiratory pattern is regular, symmetrical. 20:30 General: Appears in no apparent distress, comfortable, Behavior is crying, Patient kmg1 tearful. Diaphoretic. Temp 101. made aware. 21:30 Reassessment: Patient appears in no apparent distress at this time. Patient denies pain kmg1 at this time. Patient states feeling better. Patient states symptoms have improved. 22:29 General: Appears in no apparent distress, comfortable, Behavior is appropriate for age, kmg1 cooperative, pleasant. Pain: Denies pain. Cardiovascular: Rhythm is sinus tachycardia No ectopy. Respiratory: Airway is patent Respiratory effort is even, unlabored, Respiratory pattern is regular, symmetrical. Vital Signs: 13:59 BP 189 / 80; Pulse 120; Resp 18; Temp 99.1; Pulse Ox 99% ; Weight 83.46 kg; Height 5 elp ft. 7 in. (170.18 cm); Pain 2/10; 16:34 Pulse 114 MON; Pulse Ox 97% ; jmk 16:49 BP 125 / 79 (auto/); jmk 18:58 BP 143 / 79; Pulse 103; Resp 16; jmk 19:15 BP 128 / 70 (auto/); kmg1 19:15 Pulse 106 MON; Pulse Ox 98% ; kmg1 19:51 BP 141 / 79 (auto/); kmg1 19:51 Pulse 118 MON; Pulse Ox 94% ; kmg1 20:06 BP 138 / 82 (auto/); kmg1 20:06 Pulse 116 MON; Pulse Ox 96% ; kmg1 20:21 BP 120 / 66 (auto/); kmg1 20:21 Pulse 118 MON; Resp 18; Temp 101(TE); Pulse Ox 96% ; kmg1 20:51 BP 145 / 87 (auto/); kmg1 20:51 Pulse 116 MON; Pulse Ox 96% ; kmg1 21:06 BP 133 / 77 (auto/); kmg1 21:06 Pulse 104 MON; Pulse Ox 97% ; kmg1 21:17 Pulse 106 MON; Pulse Ox 98% ; kmg1 21:18 Temp 99.8(TE); kmg1 21:21 BP 159 / 66 (auto/); kmg1 21:21 Pulse 104 MON; Pulse Ox 98% ; kmg1 21:36 BP 138 / 70 (auto/); kmg1 21:36 Pulse 108 MON; Pulse Ox 98% ; kmg1 21:51 BP 131 / 63 (auto/); kmg1 21:51 Pulse 106 MON; Pulse Ox 96% ; kmg1 22:06 BP 136 / 72 (auto/); g1 22:06 Pulse 106 MON; Pulse Ox 98% ; g1 22:31 BP 120 / 68; Pulse 109; Resp 18; Temp 96.5(O); Pulse Ox 96% on R/A; Pain 0/10; kmg1 13:59 Body Mass Index 28.82 (83.46 kg, 170.18 cm) elp Vitals: 13:59 Log In Time: December 05, 2016 at 13:57. RN notified that patient meets Red Flag elp criteria. ED Course: 13:58 Patient visited by Chinyere Okeefe PCA. elp 13:58 Carmella De Oliveira is Private Physician. elp 13:58 Patient moved to Waiting elp 14:01 Patient visited by Chinyere Okeefe PCA. elp 14:06 Patient moved to 7 elp 14:13 Triage Initiated ml6 14:29 EKG done. (by ED staff). Reviewed by Quinton Monzon MD. jrd 14:30 Patient visited by Horace Villalobos PCA. jrd 15:01 The patient / caregiver is instructed regarding the plan of care and ED course. Cardiac jmk monitor on. Pulse ox on. 15:01 Inserted saline lock: 20 gauge in right antecubital area. No procedures done that jmk require assistance. 15:10 Patient visited by Lily Diaz, JOSEY. jjr 15:21 Yohan Cummins MD is Attending Physician. pc 15:36 Patient visited by Yohan Cummins MD. pc 15:43 Liver Profile Sent. jmk 15:43 MED Profile Sent. jmk 15:43 CBC with Diff Sent. jmk 15:48 -Influenza A&B Rapid Antigen - Nose Sent. jmk 16:32 Patient moved to Ultrasound am17 16:36 [facility] Payment Agreement was scanned into [employer] and attached to record. zo 16:47 Patient moved to 7 am17 16:48 Patient visited by Yohan Cummins MD. pc 16:50 Patient visited by Alvino Rice,JOSEY. jmk 17:02 Abdomen, Flat\E\Upright,PA Chest Returned. EDMS 17:50 Liver US Returned. EDMS 18:07 Patient visited by Yohan Cummins MD. pc 19:07 Patient visited by Harlan Chowdhury PCA. kb5 19:08 Sandee Wilson, RN is Primary Nurse. kmg1 19:27 Patient visited by Sandee Wilson RN. kmg1 20:06 Patient visited by Harlan Chowdhury PCA. kb5 21:02 Patient visited by Harlan Chowdhury PCA. kb5 22:00 CT Chest Without Contrast Returned. EDMS 22:06 Patient visited by Yohan Cummins MD. pc 22:12 Carmella De Olievira is Referral Physician. pc 22:12 Matthew Palumbo is Referral Physician. pc 22:52 CT ABD & PELVIS: No Contrast Returned. EDMS 01 08:39 EKG-ADULT Returned. EDMS 10:27 ECG/EKG was scanned into [employer] and attached to record. gb 10:28 Radiology Report was scanned into [employer] and attached to record. gb Administered Medications: 12/05 15:43 Drug: NS 0.9% 1000 ml Route: IV; Rate: bolus; Site: right antecubital; k 16:51 Follow up: IV Status: Completed infusion; IV Intake: 1000ml [facility] 18:18 Drug: NS 0.9% 1000 ml Route: IV; Rate: bolus; Site: right antecubital; k 19:27 Follow up: IV Status: Completed infusion; IV Intake: 1000[place] [facility] 21:05 Drug: Acetaminophen 650 mg [acetaminophen 325 mg tablet (2 tabs)] Route: PO; [facility] Intake: 16:51 IV: 1000.00ml (NS); Total: 1000.00ml. k 16:51 IV: 1000.00ml; Total: 2000.00ml. k 19:27 IV: 1000.00ml; Total: 3000.00ml. km Order Results: Lab Order: CBC with Diff; SPEC'M 12/05/16 14:52 Test: WHITE BLOOD COUNT; Value: 6.1; Range: 4.0-10.0; Units: K/mm3; Status: F Test: RED BLOOD COUNT; Value: 4.23; Range: 4.00-5.40; Units: M/mm3; Status: F Test: HEMOGLOBIN; Value: 13.5; Range: 12.0-16.0; Units: g/dl; Status: F Test: HEMATOCRIT; Value: 38.5; Range: 36.0-47.0; Units: %; Status: F Test: MEAN CORPUSCULAR VOLUME; Value: 91.0; Range: 80.0-96.0; Units: fl; Status: F Test: MEAN CORPUSCULAR HEMOGLOBIN; Value: 31.9; Range: 27.0-33.0; Units: pg; Status: F Test: MEAN CORPUSCULAR HGB CONC; Value: 35.1; Range: 32.0-36.5; Units: g/dl; Status: F Test: RED CELL DISTRIBUTION WIDTH; Value: 11.5; Range: 11.5-14.5; Units: %; Status: F Test: PLATELET COUNT, AUTOMATED; Value: 195; Range: 150-450; Units: k/mm3; Status: F Test: NEUTROPHILS %; Value: 63.2; Range: 36.0-66.0; Units: %; Status: F Test: LYMPH %; Value: 22.6; Range: 24.0-44.0; Abnormal: Below low normal; Units: %; Status: F Test: MONO %; Value: 8.8; Range: 0.0-5.0; Abnormal: Above high normal; Units: %; Status: F Test: EOS %; Value: 2.0; Range: 0.0-3.0; Units: %; Status: F Test: BASO %; Value: 0.4; Range: 0.0-1.0; Units: %; Status: F Test: LARGE UNSTAINED CELL %; Value: 3.0; Range: 0.0-4.0; Units: %; Status: F Test: NEUTROPHILS #; Value: 3.9; Range: 1.8-7.7; Units: K/mm3; Status: F Test: LYMPH #; Value: 1.4; Range: 1.5-4.5; Abnormal: Below low normal; Units: K/mm3; Status: F Test: MONO #; Value: 0.5; Range: 0.0-0.8; Units: K/mm3; Status: F Test: EOS #; Value: 0.1; Range: 0.0-0.50; Units: K/mm3; Status: F Test: BASO #; Value: 0.0; Range: 0.0-0.2; Units: K/mm3; Status: F Test: LARGE UNSTAINED CELL #; Value: 0.2; Range: 0.0-0.4; Units: K/mm3; Status: F Lab Order: MED Profile; SPEC'M 12/05/16 14:52 Test: GLUCOSE, FASTING; Value: 106; Range: 70-105; Abnormal: Above high normal; Units: MG/DL; Status: F Test: BLOOD UREA NITROGEN; Value: 18; Range: 7-18; Units: MG/DL; Status: F Test: CREATININE FOR GFR; Value: 0.66; Range: 0.55-1.02; Units: MG/DL; Status: F Test: GLOMERULAR FILTRATION RATE; Value: > 60.0; Range: >51; Status: F Test: SODIUM LEVEL; Value: 142; Range: 136-145; Units: MEQ/L; Status: F Test: POTASSIUM SERUM; Value: 4.6; Range: 3.5-5.1; Units: MEQ/L; Status: F Test: CHLORIDE LEVEL; Value: 106; Range: 98-107; Units: MEQ/L; Status: F Test: CARBON DIOXIDE LEVEL; Value: 25; Range: 21-32; Units: MEQ/L; Status: F Test: ANION GAP; Value: 11; Range: 8-16; Units: MEQ/L; Status: F Test: CALCIUM LEVEL; Value: 10.1; Range: 8.5-10.1; Units: MG/DL; Status: F Test Note: ; Units are mL/min/1.73 m2 Chronic Kidney Disease Staging per NKF: Stage I & II GFR >=60 Normal to Mildly Decreased Stage III GFR 30-59 Moderately Decreased Stage IV GFR 15-29 Severely Decreased Stage V GFR <15 Very Little GFR Left ESRD GFR <15 on CRUSHER AND BLENDER OPERATOR Lab Order: Liver Profile; SPEC'M 12/05/16 14:52 Test: AST/SGOT; Value: 66; Range: 15-37; Abnormal: Above high normal; Units: U/L; Status: F Test: ALT/SGPT; Value: 104; Range: 12-78; Abnormal: Above high normal; Units: U/L; Status: F Test: ALKALINE PHOSPHATASE; Value: 88; Range: 45-117; Units: U/L; Status: F Test: BILIRUBIN,TOTAL; Value: 2.2; Range: 0.2-1.0; Abnormal: Above high normal; Units: MG/DL; Status: F Test: BILIRUBIN,DIRECT; Value: 0.4; Range: 0.0-0.2; Abnormal: Above high normal; Units: MG/DL; Status: F Test: TOTAL PROTEIN; Value: 6.3; Range: 6.4-8.2; Abnormal: Below low normal; Units: GM/DL; Status: F Test: ALBUMIN; Value: 3.6; Range: 3.2-5.2; Units: GM/DL; Status: F Test: ALBUMIN/GLOBULIN RATIO; Value: 1.33; Range: 1.00-1.93; Status: F Lab Order: -Influenza A&B Rapid Antigen - Nose; SPEC'M 12/05/16 15:47 Test: INFLUENZA A RAPID SCR by ICA; Value: INFLUENZA A RESULTS NEGATIVE; Status: F Test: INFLUENZA A RAPID SCR by ICA; Value: Comments:; Status: F Test: INFLUENZA B RAPID SCR by ICA; Value: INFLUENZA B RESULTS NEGATIVE; Status: F Test Note: ; The Influenza test is a direct rapid immunoassay for the qualitative detection of Influenza viral antigen. Cell culture (Viral Culture) testing should be considered to confirm NEGATIVE results and to assist in detecting other viruses that can provide similar clinical symptoms. Please contact the lab within 24 hours ([phone]) if confirmatory testing is desired. Lab Order: CARDIAC MARKER PANEL; SPEC'M 12/05/16 14:52 Test: CPK CREATINE PHOSPHOKINASE; Value: 84; Range: 26-192; Units: U/L; Status: F Test: CK-MB VALUE MASS; Value: 1.0; Range: 0.0-3.6; Units: NG/ML; Status: F Test: MB/CK RELATIVE INDEX; Value: 1.19; Range: < OR =4; Status: F Test: TROPONIN I; Value: < 0.02; Range: < 0.10; Units: NG/ML; Status: F Test Note: ; DIAGNOSIS CRITERIA MMB ng/ml Relative Index (RI) NON-AMI < or = 5 N/A SILVER ZONE > 5 < or = 4 AMI > 5 > 4 Radiology Order: EKG-ADULT Test: EKG-ADULT REASON FOR EXAMINATION: palpitations; Stationary ECG Study; [facility] - ED; ; Test Date: 2016-12-05; Pat Name: ANETA ARMENDARIZ Department:; Room: -; Gender: F Infant Lead Teacher: albert; : 1960 Requested By: QUINTON Pride; Order Number: [id number] Reading MD: Nicolle Rueda; Measurements; Intervals [place]; Rate: 116 P: 56; WY: 148 QRS: 6; QRSD: 64 T: 27; QT: 286; QTc: 399; Interpretive Statements; SINUS TACHYCARDIA; ?INFERIOR VT AGE; NO PRIOR FOR COMPARISON; ABNORMAL RHYTHM ECG; ; Electronically Signed On 12-06-2016 8:35:10 EST by Nicolle Rueda; Radiology Order: Abdomen, Flat\E\Upright,PA Chest Test: Abdomen, Flat\E\Upright,PA Chest REASON FOR EXAMINATION: abd pain after colonoscopy; ABDOMEN, FLAT AND UPRIGHT, PA CHEST:; ; HISTORY: Abdominal pain.; ; Air is present in small and large intestine. Several air fluid levels are; present. There are no dilated loops of intestine. There is no pneumoperitoneum.; The lungs are clear.; ; IMPRESSION:; ; Nonspecific bowel gas pattern.; ; ; Signed by; Zach Couch MD 12/05/2016 05:06 P; Radiology Order: Liver US Test: Liver US REASON FOR EXAMINATION: elevated LFTs; RIGHT UPPER QUADRANT ULTRASOUND:; ; Real-time sonographic evaluation of the right upper quadrant is performed.; Gallbladder shows no evidence of intraluminal sludge or calculi, wall thickening; or pericholecystic fluid. There is no intrahepatic or extrahepatic biliary; dilatation. Common bile duct measuring 3 mm in diameter. Surveyed images of the; liver demonstrate diffuse heterogenous increased echotexture suggesting diffuse; fibrofatty infiltration. No liver or pancreatic mass is seen. Pancreas is not; optimally seen due to overlying bowel gas. Right kidney demonstrates no; hydronephrosis or nephrolithiasis with normal size of 10.8 cm in length.; ; IMPRESSION:; ; Probable fibrofatty infiltration of the liver, otherwise negative right upper; quadrant ultrasound.; ; ; Signed by; Siddhartha Silver MD 12/05/2016 05:31 P; Radiology Order: CT ABD & PELVIS: No Contrast Test: CT ABD & PELVIS: No Contrast REASON FOR EXAMINATION: Diverticulitis; ; CT of the abdomen and pelvis without contrast; Clinical statement: Pain. Diverticulitis.; Technique: Multiple axial CT images were obtained from the base of the lungs to the floor of the pelv; is utilizing 5 mm axial slices without administration of contrast. Coronal and sagittal reconstructio; ns were also obtained.; No comparison is available.; Findings:; Chest: The visualized lung bases are clear.; Abdomen: The kidneys are normal in size bilaterally. There is a small simple cyst in the lower pole o; f the right kidney. There is no evidence of hydronephrosis. A 2 mm nonobstructing stone is seen in th; e left kidney. The liver, spleen, pancreas, gallbladder and adrenal glands are unremarkable. The aort; a demonstrates normal caliber and contour. There is no abdominal lymphadenopathy or ascites.; Pelvis: The bowel is unremarkable, with no obstructive or inflammatory changes. The appendix is michael; l. The urinary bladder is within normal limits. There is no pelvic lymphadenopathy or ascites. The ot; her pelvic structures appear unremarkable.; Bones: There are no suspicious osseous abnormalities seen.; Impression: Unremarkable CT examination of the abdomen and pelvis. No acute findings to explain the p; atient's pain. 2 mm nonobstructing stone in the left renal collecting system.; ; Radiology Order: CT Chest Without Contrast Test: CT Chest Without Contrast REASON FOR EXAMINATION: cough, fever; ; CT of the chest without contrast; Clinical statement: cough, fever.; Technique: Multiple axial CT images were obtained with 5 mm cuts through the chest without administra; tion of contrast. Coronal and sagittal reconstructions were also obtained.; No comparison is available.; Findings: There is no thoracic lymphadenopathy. The visualized portions of the thyroid gland is unrem; arkable. There are no pericardial or pleural effusions. The lungs are clear. Limited imaging of the u; pper abdomen does not demonstrate any acute abnormalities. There are no suspicious osseous lesions.; Impression: Unremarkable CT examination of the chest.; ; Outcome: 22:13 Discharge ordered by Provider. pc 22:31 Discharge Assessment: Patient awake, alert and oriented x 3. No cognitive and/or [facility] functional deficits noted. Patient verbalized understanding of disposition instructions. Patient awake and alert. patient administered narcotics - no. The following High Risk Discharge criteria are identified: None. Discharged to home ambulatory, with significant other. Condition: stable. CT Study completed. Ultrasound Study completed. Property sent home with patient. 22:32 Patient left the [place]. [facility] Signatures: Dispatcher [employer] EDMS Yohan Cummins MD MD pc Garrison, Kelly RN RN [facility] Alvino Rice,RN RN [facility] Kyleigh Andrade, Reg Reg gb Kayden Raza zo Harlan Chowdhury, ADVERTISING MANAGER ADVERTISING MANAGER kb5 Lily Diaz, RN RN Vijay Cage, RN RN ml6 Chinyere Okeefe, ADVERTISING MANAGER ADVERTISING MANAGER denip Bebe Becker am17 Horace Villalobos, ADVERTISING MANAGER ADVERTISING MANAGER jrd Corrections: (The following items were deleted from the chart) 15:57 15:50 TROPONIN+LAB sent. [facility] EDVT 15:57 15:50 CARDIAC INJURY PROFILE+LAB sent. [facility] EDMS 20:38 20:21 Pulse 118bpm; Monitor; Pulse Ox 96%; [place] [id number] Chart Complete MTDD
--- NOTE | 2016-12-09 10:05 | EDDOCDS ---
Physician Documentation [facility] Name: Aliya Armendariz Age: 56 yrs Sex: Female : 1960 Arrival Date: 12/05/2016 Time: 13:56 Bed 7 Private MD: Carmella De lOiveira M. Disposition: 12/05 22:06 Critical Care: Critical care not applicable. pc Disposition: 12/05/16 22:13 Discharged to Home/Self Care. Impression: Acute upper respiratory infection, unspecified - viral, Dehydration - resolved, Disorder of bilirubin metabolism, unspecified, Fatty (change of) liver, not elsewhere classified. - Condition is Stable. - Discharge Instructions: Upper Respiratory Infection, Adult, Viral Infections. - Medication Reconciliation, Local Pharmacy Hours form. - Follow up: Carmella De Oliveira; When: 2 - 3 days; Reason: Recheck today's complaints, Continuance of care. Follow up: Matthew Palumbo; When: Call to arrange an appointment; Reason: Continuance of care. - Problem is new. - Symptoms have improved. HPI: 15:41 This 56 yrs old Female presents to ER via Walkin/Carried/Asstd with pc complaints of weakness. 15:41 The history is obtained from the patient. She has had URI symptoms, with body aches and pc feeling "generally crappy" for 8 days. She had a colonoscopy only 3 days, while still feeling sick, and has felt worse since. She has occasional white sputum production, but complains mostly of sinus pressure and congestion. She has not had an appetite and did not eat at all yesterday, tolerating minimal po fluids only. This morning she awoke and felt nauseated, vomited once, and none since. She was seen by her PCP who directed her here due to her pulse being fast. She denies any fevers or chills, has occasional abdominal cramping but no diarrhea, denies symptoms. 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 Historical: - Allergies: no known allergies; - Home Meds: 1. amlodipine 5 mg Oral tab 1 tab once daily (Last dose: 12/05/2016 07:00) 2. aspirin 81 mg Oral tab 1 tab once daily (Last dose: 12/05/2016 07:00) 3. atorvastatin 40 mg oral tab 1 tab once daily (Last dose: 12/05/2016 07:00) 4. Cymbalta 20 mg Oral cpDR 1 cap 2 times per day (Last dose: 12/05/2016 07:00) 5. Protonix 40 mg Oral TbEC 1 tab once daily (Last dose: 12/05/2016 07:00) - PMHx: Hypertension; Hepatitis B; hyperlipidemia; Depression; GERD; - PSHx: Colonoscopy; bilateral heel spurs; - The history from nurses notes was reviewed: and I agree with what is documented. - Social history: Smoking status: Patient states former smoker of tobacco. No barriers to communication noted, The patient speaks fluent Jamaican. - Family history: Not pertinent. - : The pt / caregiver states he / she is not on anticoagulants. Home medication list is obtained from the patient. - Hospitalizations: : No recent hospitalization is reported. - Exposure Risk Screening:: None identified. - Immunization history:: All immunizations up-to-date. - Social history:: the patient is a non-smoker, the patient does not drink alcohol. ROS: 15:41 All systems are negative except as listed. pc Exam: 15:41 General Appearance: no acute distress, alert. pc 15:41 EENT: normal eye inspection, ears, nose and throat normal, mucous membranes dry. 15:41 Neck: The exam reveals no acute abnormalities. ROM is normal and painless. No nuchal rigidity is noted.. 15:41 Respiratory: no respiratory distress, normal breath sounds. 15:41 CVS: regular rhythm, normal S1 and S2, no murmurs, strong peripheral pulses, normal capillary refill, the patient is tachycardic, at 124 bpm. 15:41 Abdomen: soft, no organomegaly, normal bowel sounds, mild tenderness in the epigastric area, without rebound, voluntary guarding is not appreciated, involuntary guarding is not appreciated. 15:41 Back: normal inspection. 15:41 : bladder is non-distended, non-tender. 15:41 Skin: skin color is normal, warm, dry. 15:41 Extremities: The extremities have a grossly normal appearance, are non-tender, without acute ROM abnormalities. 15:41 Neuro: oriented x 3, cranial nerves normal as tested, no motor deficits, no sensory deficits. 15:41 Psych: normal mood. Vital Signs: 13:59 BP 189 / 80; Pulse 120; Resp 18; Temp 99.1; Pulse Ox 99% ; Weight 83.46 kg / 184 lbs; elp Height 5 ft. 7 in. (170.18 cm); Pain 2/10; 16:34 Pulse 114 MON; Pulse Ox 97% ; jmk 16:49 BP 125 / 79 (auto/); jmk 18:58 BP 143 / 79; Pulse 103; Resp 16; jmk 19:15 BP 128 / 70 (auto/); kmg1 19:15 Pulse 106 MON; Pulse Ox 98% ; kmg1 19:51 BP 141 / 79 (auto/); kmg1 19:51 Pulse 118 MON; Pulse Ox 94% ; kmg1 20:06 BP 138 / 82 (auto/); kmg1 20:06 Pulse 116 MON; Pulse Ox 96% ; kmg1 20:21 BP 120 / 66 (auto/); kmg1 20:21 Pulse 118 MON; Resp 18; Temp 101(TE); Pulse Ox 96% ; kmg1 20:51 BP 145 / 87 (auto/); kmg1 20:51 Pulse 116 MON; Pulse Ox 96% ; kmg1 21:06 BP 133 / 77 (auto/); kmg1 21:06 Pulse 104 MON; Pulse Ox 97% ; kmg1 21:17 Pulse 106 MON; Pulse Ox 98% ; kmg1 21:18 Temp 99.8(TE); kmg1 21:21 BP 159 / 66 (auto/); kmg1 21:21 Pulse 104 MON; Pulse Ox 98% ; kmg1 21:36 BP 138 / 70 (auto/); kmg1 21:36 Pulse 108 MON; Pulse Ox 98% ; kmg1 21:51 BP 131 / 63 (auto/); kmg1 21:51 Pulse 106 MON; Pulse Ox 96% ; kmg1 22:06 BP 136 / 72 (auto/); kmg1 22:06 Pulse 106 MON; Pulse Ox 98% ; kmg1 22:31 BP 120 / 68; Pulse 109; Resp 18; Temp 96.5(O); Pulse Ox 96% on R/A; Pain 0/10; kmg1 13:59 Body Mass Index 28.82 (83.46 kg, 170.18 cm) elp MDM: 14:18 ECG WITH READING ER PHYS+CARDIAG ordered. EDMS 15:40 IV Saline Lock ordered. pc 15:40 Obtain sample by nasopharyngeal swab ordered. pc 15:40 NS 0.9% 1000 ml IV at bolus once ordered. pc 15:41 CBC with Diff Ordered. EDMS 15:41 MED Profile Ordered. EDMS 15:41 Liver Profile Ordered. EDMS 15:41 -Influenza A&B Rapid Antigen - Nose Ordered. EDMS 15:41 Differential Diagnosis: URI r/o pneumonia/influenza; dehydration; s/p colonoscopy. pc Plan: labs, imaging, IVF. 15:43 Abdomen, Flat\\E\\Upright,PA Chest Ordered. EDMS 15:47 Test interpretation: EKG. pc 15:57 CARDIAC MARKER PANEL Ordered. EDMS 16:09 CBC with Diff Reviewed. pc 16:09 MED Profile Reviewed. pc 16:09 Liver Profile Reviewed. pc 16:09 -Influenza A&B Rapid Antigen - Nose Reviewed. pc 16:11 CARDIAC MARKER PANEL Reviewed. pc 16:21 Financial registration complete. zo 16:23 MED Profile Reviewed. pc 16:23 Liver Profile Reviewed. pc 16:23 CARDIAC MARKER PANEL Reviewed. pc 16:26 Liver US Ordered. EDMS 16:36 [facility] Payment Agreement was scanned into [employer] and attached to record. zo 18:01 NS 0.9% 1000 ml IV at bolus once ordered. pc 18:30 Data reviewed: The patient's [facility] records were accessed, as they were informed. pc 20:19 Vital Signs ordered. pc 20:19 Abdomen, Flat\\E\\Upright,PA Chest Reviewed. pc 20:19 Liver US Reviewed. pc 20:38 Acetaminophen Tablet 650 mg PO once ordered. pc 20:40 CT ABD & PELVIS: No Contrast Ordered. EDMS 20:42 CT Chest Without Contrast Ordered. EDMS 22:06 Test interpretation: LAB - all labs as ordered have been reviewed, interpreted and pc considered in the overall management of the clinical presentation; X-RAY - interpreted by Radiologist and personally reviewed, 3-view abdomen series; no acute disease, Ultrasound - interpreted by Radiologist, Gallbladder fatty liver only. 22:06 Test interpretation: interpreted by Radiologist and personally reviewed, Abdomen/Pelvis pc CT; no acute disease, Chest CT; normal. The patient has been re-examined and re-evaluated. The patient's symptoms have markedly improved after treatment, with her tolerating fluids, is afebrile. Disposition: The historical points, examination findings, and any diagnostic results supporting the provided diagnosis, were discussed with the patient or legal guardian. The need for outpatient follow up with the provider listed on their discharge instructions was discussed. They were encouraged to return to [facility], or the nearest ED, if symptoms worsen/persist, or for any other questions/concerns. 12/06 10:27 ECG/EKG was scanned into [employer] and attached to record. 10:28 Radiology Report was scanned into [employer] and attached to record. EC/06 15:47 Rate is 115 beats/min. Rhythm is regular, Sinus tachycardia. QRS [place] is Normal. MS pc interval is normal. QRS interval is normal. QT interval is normal. Q waves are Old in leads III, aVF. T waves are Normal. No ST changes noted. Clinical impression: Sinus tachycardia and Inferior RI - age indeterminate. Administered Medications: 15:43 Drug: NS 0.9% 1000 ml Route: IV; Rate: bolus; Site: right antecubital; [facility] 16:51 Follow up: IV Status: Completed infusion; IV Intake: 1000ml [facility] 18:18 Drug: NS 0.9% 1000 ml Route: IV; Rate: bolus; Site: right antecubital; [facility] 19:27 Follow up: IV Status: Completed infusion; IV Intake: 1000ml [facility] 21:05 Drug: Acetaminophen 650 mg [acetaminophen 325 mg tablet (2 tabs)] Route: PO; kmg1 Signatures: Dispatcher [employer] EDMS Yohan Cummins MD MD pc Garrison, Kelly, RN RN kmg1 Alvino Rice,RN RN Kyleigh Reeves, Kayden Kitchen Matthew, RN RN ml6 The chart was reviewed and I authenticate all verbal orders and agree with the evaluation and treatment provided.Corrections: (The following items were deleted from the chart) 15:57 15:50 CARDIAC INJURY PROFILE+LAB ordered. EDAL EDMS 15:57 15:50 TROPONIN+LAB ordered. EDAL EDMS Attachments: 16:36 [facility] Payment Agreement zo 12/06 10:27 ECG/EKG Chart Complete MTDD
== END 2016-12-05 22:32 | disposition home or self-care (01) ==
LOC: M ED 13:56
DX: J06.9 Acute upper respiratory infection, unspecified (principal); K76.0 Fatty (change of) liver, not elsewhere classified; E86.0 Dehydration; E80.7 Disorder of bilirubin metabolism, unspecified; R94.31 Abnormal electrocardiogram [ECG] [EKG]; I10 Essential (primary) hypertension; E78.5 Hyperlipidemia, unspecified; F32.9 Major depressive disorder, single episode, unspecified; K21.9 Gastro-esophageal reflux disease without esophagitis; Z86.19 Personal history of other infectious and parasitic diseases; Z87.891 Personal history of nicotine dependence; Z79.82 Long term (current) use of aspirin; Z79.899 Other long term (current) drug therapy

== ENCOUNTER → 2016-12-11 | Outpatient (REF) | payer BC ==
[2016-12-11 20:17] LABS: ALBUMIN 3.7 GM/DL (3.2-5.2); ALBUMIN/GLOBULIN RATIO 1.48 (1.00-1.93); ALKALINE PHOSPHATASE 86 U/L (45-117); ALT/SGPT 81 U/L (12-78); ANION GAP 9 MEQ/L (8-16); AST/SGOT 45 U/L (15-37); BILIRUBIN,TOTAL 2.3 MG/DL (0.2-1.0); BLOOD UREA NITROGEN 15 MG/DL (7-18); CALCIUM LEVEL 9.9 MG/DL (8.5-10.1); CARBON DIOXIDE LEVEL 29 MEQ/L (21-32); CHLORIDE LEVEL 106 MEQ/L (98-107); CREATININE FOR GFR 0.62 MG/DL (0.55-1.02); FERRITIN 496 NG/ML (8-252); FREE T4 7.45 NG/DL (0.76-1.46); GLOMERULAR FILTRATION RATE > 60.0 (>51); GLUCOSE, FASTING 113 MG/DL (70-105); POTASSIUM SERUM 4.5 MEQ/L (3.5-5.1); SODIUM LEVEL 144 MEQ/L (136-145); TOTAL IRON BINDING CAPACITY 272 UG/DL (250-450); TOTAL PROTEIN 6.2 GM/DL (6.4-8.2)
[2016-12-12 08:57] LABS: HEPATITIS B SURFACE ANTIBODY NEGATIVE (POSITIVE)
== END ==
LOC: M SFHCLERA 10:11
PROVIDERS: ATTEND Family Medicine
DX: E80.6 Other disorders of bilirubin metabolism (principal)

== ENCOUNTER → 2016-12-12 | Outpatient (CLI) | payer BC ==
[2016-12-12 15:15] LABS: BASO # 0.1 K/mm3 (0.0-0.2); BASO % 1.5 % (0.0-1.0); EOS # 0.1 K/mm3 (0.0-0.50); LARGE UNSTAINED CELL # 0.2 K/mm3 (0.0-0.4); LYMPH % 35.9 % (24.0-44.0); MEAN CORPUSCULAR HGB CONC 33.7 g/dl (32.0-36.5); MONO # 0.5 K/mm3 (0.0-0.8); MONO % 5.9 % (0.0-5.0); NEUTROPHILS # 4.3 K/mm3 (1.8-7.7); NEUTROPHILS % 53.7 % (36.0-66.0); PLATELET COUNT, AUTOMATED 311 k/mm3 (150-450); RED CELL DISTRIBUTION WIDTH 12.2 % (11.5-14.5)
[2016-12-12 15:59] LABS: ALBUMIN 3.6 GM/DL (3.2-5.2); ALBUMIN/GLOBULIN RATIO 1.29 (1.00-1.93); ALKALINE PHOSPHATASE 85 U/L (45-117); ALT/SGPT 92 U/L (12-78); AMYLASE 37 U/L (25-115); AST/SGOT 50 U/L (15-37); BILIRUBIN,DIRECT 0.3 MG/DL (0.0-0.2); BILIRUBIN,TOTAL 2.2 MG/DL (0.2-1.0); TOTAL PROTEIN 6.4 GM/DL (6.4-8.2)
== END ==
LOC: M LAB 14:26
PROVIDERS: ATTEND Physician Assistant Medical
DX: R94.5 Abnormal results of liver function studies (principal)

== ENCOUNTER → 2016-12-12 | Outpatient (REF) | payer BC ==
[2016-12-13 13:35] LABS: THYROXINE (T4) > 24.0 UG/DL (4.5-12.0)
[2016-12-15 10:13] LABS: THYROID PEROXIDASE ANTIBODY < 28.0 U/ML (<60.0)
== END ==
LOC: M LAB REF 09:23
PROVIDERS: ATTEND Family Medicine
DX: E05.90 Thyrotoxicosis, unspecified without thyrotoxic crisis or storm (principal)

== ENCOUNTER → 2016-12-17 | Outpatient (CLI) | payer BC ==
--- NOTE | 2016-12-18 11:23 | REP ---
Radionuclide thyroid scan and uptake: History: Hyperthyroidism. Technique: 423 microcuries of I 123 sodium iodide is ingested and 25 hour uptake and scan images are acquired. Scintigraphic findings: Thyroid uptake value is elevated to 56.5% (25-35%). Functional images demonstrate homogeneous uptake in mildly prominent size thyroid lobes bilaterally. No cold or warm lesion is seen scintigraphically. Impression: Increased uptake homogeneous function. Findings compatible with Graves disease. Signed by Patrick Miranda MD 12/18/2016 03:08 P
== END ==
LOC: M RAD 08:18
PROVIDERS: ATTEND Family Medicine
DX: E05.90 Thyrotoxicosis, unspecified without thyrotoxic crisis or storm (principal)

== ENCOUNTER → 2016-12-25 | Outpatient (CLI) | payer BC ==
[2016-12-25 08:53] LABS: BASO % 0.3 % (0.0-1.0); EOS # 0.1 K/mm3 (0.0-0.50); EOS % 2.3 % (0.0-3.0); LARGE UNSTAINED CELL # 0.1 K/mm3 (0.0-0.4); LARGE UNSTAINED CELL % 2.2 % (0.0-4.0); LYMPH # 2.3 K/mm3 (1.5-4.5); LYMPH % 39.2 % (24.0-44.0); MEAN CORPUSCULAR HGB CONC 35.3 g/dl (32.0-36.5); MEAN CORPUSCULAR VOLUME 87.9 fl (80.0-96.0); MONO # 0.4 K/mm3 (0.0-0.8); MONO % 7.4 % (0.0-5.0); NEUTROPHILS # 2.8 K/mm3 (1.8-7.7); NEUTROPHILS % 48.5 % (36.0-66.0); PLATELET COUNT, AUTOMATED 243 k/mm3 (150-450); RED CELL DISTRIBUTION WIDTH 11.9 % (11.5-14.5); WHITE BLOOD COUNT 5.8 K/mm3 (4.0-10.0)
[2016-12-25 08:56] LABS: INR 0.98
== END ==
LOC: M LAB 08:27
PROVIDERS: ATTEND Physician Assistant Medical
DX: R94.5 Abnormal results of liver function studies (principal)

== ENCOUNTER → 2016-12-26 | Outpatient (CLI) | payer BC ==
[~2016-12-26] MED LIST changes: +ACETAMINOPHEN 325 MG TAB As Ordered ONE; +LIDOCAINE 1% MDV 20ML VIAL As Ordered ONE
--- NOTE | 2016-12-26 14:54 | REP ---
ULTRASOUND GUIDED LIVER BIOPSY: The procedure was performed under the direct supervision of Dr. Miranda. The risks and benefits of the procedure were explained to the patient and informed consent was obtained. The left lobe of the liver was localized using ultrasound guidance. The skin was prepped and draped in a sterile fashion. 1% Xylocaine was used as a local anesthetic. Using ultrasound guidance a 19/20 gauge coaxial needle biopsy system was inserted and advanced into the liver. Five core biopsy samples were obtained and sent to the lab. The patient tolerated the procedure well and there were no immediate complications. After the appropriate amount of monitored convalescences the patient was discharged from the department. Reviewed by VICTORIA Whitney 12/26/2016 03:42 PEdited and Signed by Patrick Miranda MD 12/26/2016 03:48 P
== END ==
LOC: M RADPRO 08:02
PROVIDERS: ATTEND Physician Assistant Medical
DX: K76.0 Fatty (change of) liver, not elsewhere classified (principal); R94.5 Abnormal results of liver function studies; E80.6 Other disorders of bilirubin metabolism; E78.5 Hyperlipidemia, unspecified; I10 Essential (primary) hypertension; F32.9 Major depressive disorder, single episode, unspecified; M79.7 Fibromyalgia; M32.9 Systemic lupus erythematosus, unspecified; J45.909 Unspecified asthma, uncomplicated; Z86.19 Personal history of other infectious and parasitic diseases; Z79.82 Long term (current) use of aspirin; Z79.51 Long term (current) use of inhaled steroids; Z79.899 Other long term (current) drug therapy

== ENCOUNTER → 2017-01-02 | Outpatient (CLI) | payer BC ==
[~2017-01-02] MED LIST changes: -ACETAMINOPHEN 325 MG TAB As Ordered ONE; -LIDOCAINE 1% MDV 20ML VIAL As Ordered ONE
[2017-01-02 14:28] LABS: MEAN CORPUSCULAR HEMOGLOBIN 29.7 pg (27.0-33.0); MEAN CORPUSCULAR HGB CONC 33.4 g/dl (32.0-36.5); MEAN CORPUSCULAR VOLUME 88.9 fl (80.0-96.0); RED CELL DISTRIBUTION WIDTH 12.2 % (11.5-14.5); WHITE BLOOD COUNT 7.4 K/mm3 (4.0-10.0)
[2017-01-02 14:50] LABS: ALBUMIN 3.5 GM/DL (3.2-5.2); ALBUMIN/GLOBULIN RATIO 1.35 (1.00-1.93); BILIRUBIN,DIRECT 0.3 MG/DL (0.0-0.2); BILIRUBIN,TOTAL 2.5 MG/DL (0.2-1.0); TOTAL PROTEIN 6.1 GM/DL (6.4-8.2)
== END ==
LOC: M LAB 13:50
PROVIDERS: ATTEND Physician Assistant Medical
DX: R94.5 Abnormal results of liver function studies (principal)

== ENCOUNTER → 2017-02-03 | Outpatient (CLI) | payer BC | LOC: M RAD 14:04 | PROVIDERS: ATTEND Internal Medicine | DX: E05.90 Thyrotoxicosis, unspecified without thyrotoxic crisis or storm (principal) ==

== ENCOUNTER → 2017-02-15 | Outpatient (CLI) | payer BC ==
--- NOTE | 2017-02-17 06:06 | SLEEPCENT ---
DATE OF PROCEDURE: 02/15/2017 ORDERED BY: Christianne Sullivan NP Nocturnal polysomnography was performed due to concern for the obstructive sleep apnea syndrome in this patient with a history of snoring, disrupted sleep and nonrestorative sleep. 7 hours and 43 minutes of data were reviewed. There were 363 minutes of sleep identified. Sleep latency was prolonged at 20 minutes. Rapid eye movement (REM) was prolonged at 168 minutes. Sleep architecture showed fragmentation, but progression was fair with two long REM periods. Overall sleep efficiency was 79%. The patient's electrocardiogram (EKG) showed a sinus rhythm with an average heart rate of 85 beats per minute. EEG showed some mild coarsening. No focal events were seen. There were 116 respiratory events identified of 10 seconds in duration or greater for an apnea hypopnea index of 19.1. The events were primarily obstructive, not exclusive to sleep stage nor body posture. Respiratory related arousals occurred 4.1 times per hour. There was significant limb activity throughout the test with continuous trains of events and limb movement arousal index of 14. IMPRESSION: 1. Moderate obstructive sleep apnea syndrome (G47.33). Apnea hypopnea index 19.1. 2. Periodic limb movement disorder (G47.61). Limb movement arousal index 14. RECOMMENDATION: The patient should be encouraged to return to the sleep disorder center for pressure therapy. In the interim, alcohol and sedative avoidance should be practiced and caution exercised during the operation of motor vehicles. Pending the outcome of pressure therapy, interventions to reduce the frequency arousal from the limb activity may also be necessary to optimize sleep.
== END ==
LOC: M SLEEP 20:00
PROVIDERS: ATTEND Nurse Practitioner Adult Health
DX: G47.30 Sleep apnea, unspecified (principal)

== ENCOUNTER → 2017-03-12 | Outpatient (CLI) | payer BC ==
--- NOTE | 2017-03-12 13:01 | REPMRS ---
Patient History The patient states she has not had a clinical breast exam in over a year. Patient has had a 20 pound weight loss since her last mammogram.Family history of prostate cancer in father at age 74. Took hormonal contraceptives for 7 years. Took estrogen for 1 year. Digital Mammo Screening Bilat: March 12, 2017 - Exam #: [id number] Bilateral CC and MLO view(s) were taken. Technologist: Cherrie Dominguez, Technologist Prior study comparison: November 19, 2015, digital bilateral screening mammo, performed at [facility]. November 09, 2014, bilateral bilat screen digital mammo, performed at [facility] ([facility] FINDINGS: There are scattered fibroglandular densities. There has been no change in the appearance of the mammogram from the prior studies. There is a mild amount of residual fibroglandular tissue which is fairly symmetric. There is no interval development of dominant mass, architectural distortion, or clustered microcalcification suggestive of malignancy. ASSESSMENT: BI-RADS/ACR category 1 mammogram. Negative. Recommendation Routine screening mammogram in 1 year (for women over age 40). This mammogram was interpreted with the aid of an FDA-approved computer-aided dectection system. Electronically Signed By: Siddhartha Silver MD 03/12/17 0912
== END ==
LOC: M RAD 12:35
PROVIDERS: ATTEND Family Medicine
DX: Z12.31 Encounter for screening mammogram for malignant neoplasm of breast (principal); Z92.0 Personal history of contraception

== ENCOUNTER → 2017-03-24 | Outpatient (CLI) | payer BC ==
--- NOTE | 2017-03-26 19:11 | SLEEPCENT ---
DATE OF PROCEDURE: 03/24/2017 ORDERED BY: Christianne Sullivan NP Nocturnal polysomnography was performed for the titration of pressure therapy in this patient with obstructive sleep apnea syndrome, apnea-hypopnea index of 19.1. For testing the patient was fit with a ResMed Quattro full face mask of extra small size. 4 cm of water pressure were applied to the circuit and the lights were extinguished. 7 hours and 52 minutes of data were reviewed. There were 248 minutes of sleep identified. Sleep latency was prolonged at 93.5. Rapid eye movement (REM) sleep was not achieved. Overall sleep efficiency was 53.5% due to periods of wake late in the study. The patient's EKG showed a sinus rhythm with an average heart rate of 62 beats per minute. EEG showed reasonably normal wave forms for wake and sleep. Respiratory events were fully palliated with CPAP at a pressure of +5. Limb activity was noted persistently throughout the study and limb movement arousal index was up from the diagnostic night at 20.6. IMPRESSION: 1. Obstructive sleep apnea syndrome (G47.33). 2. Periodic limb movement disorder (G47.61). RECOMMENDATIONS: Nightly use of pressure therapy at 5 cm of water should be sufficient to address the patient's respiratory events. Interventions to reduce the frequency of arousal from limb activity may be also be helpful.
== END ==
LOC: M SLEEP 19:22
PROVIDERS: ATTEND Nurse Practitioner Adult Health
DX: G47.33 Obstructive sleep apnea (adult) (pediatric) (principal)

== ENCOUNTER → 2017-03-27 | Outpatient (CLI) | payer BC ==
[2017-03-27 19:09] LABS: FREE T4 0.65 NG/DL (0.76-1.46)
== END ==
LOC: M LRY 13:06
PROVIDERS: ATTEND Internal Medicine
DX: E05.90 Thyrotoxicosis, unspecified without thyrotoxic crisis or storm (principal)

== ENCOUNTER → 2017-04-22 | Outpatient (CLI) | payer BC ==
[2017-04-22 19:49] LABS: FREE T4 0.25 NG/DL (0.76-1.46)
== END ==
LOC: M LRY 10:43
PROVIDERS: ATTEND Internal Medicine
DX: E05.90 Thyrotoxicosis, unspecified without thyrotoxic crisis or storm (principal)

== ENCOUNTER → 2017-06-17 | Outpatient (CLI) | payer BC ==
[~2017-06-17] MED LIST changes: -ATOR40TA PO; +ATOR40TA75 PO
[2017-06-17 20:25] LABS: FREE T4 1.71 NG/DL (0.76-1.46)
== END ==
LOC: M LRY 11:24
PROVIDERS: ATTEND Internal Medicine
DX: E89.0 Postprocedural hypothyroidism (principal)

== ENCOUNTER → 2017-09-16 | Outpatient (REF) | payer BC ==
[2017-09-16 21:07] LABS: MEAN CORPUSCULAR HEMOGLOBIN 31.7 pg (27.0-33.0); MEAN CORPUSCULAR HGB CONC 33.8 g/dl (32.0-36.5); MEAN CORPUSCULAR VOLUME 93.9 fl (80.0-96.0); RED CELL DISTRIBUTION WIDTH 12.3 % (11.5-14.5); WHITE BLOOD COUNT 9.2 10^3/uL (4.0-10.0)
[2017-09-16 21:38] LABS: ALBUMIN 3.8 GM/DL (3.2-5.2); ALBUMIN/GLOBULIN RATIO 1.36 (1.00-1.93); ALKALINE PHOSPHATASE 133 U/L (45-117); ALT/SGPT 22 U/L (12-78); ANION GAP 4 MEQ/L (8-16); AST/SGOT 15 U/L (15-37); BLOOD UREA NITROGEN 13 MG/DL (7-18); CALCIUM LEVEL 8.8 MG/DL (8.5-10.1); CARBON DIOXIDE LEVEL 32 MEQ/L (21-32); CHLORIDE LEVEL 108 MEQ/L (98-107); CREATININE FOR GFR 0.89 MG/DL (0.55-1.02); GLOMERULAR FILTRATION RATE > 60.0 (>51); GLUCOSE, FASTING 82 MG/DL (70-105); POTASSIUM SERUM 4.1 MEQ/L (3.5-5.1); SODIUM LEVEL 144 MEQ/L (136-145); TOTAL PROTEIN 6.6 GM/DL (6.4-8.2)
== END ==
LOC: M SFHCLERA 15:06
PROVIDERS: ATTEND Family Medicine
DX: R10.13 Epigastric pain (principal)

== ENCOUNTER → 2017-09-22 | Outpatient (CLI) | payer BC ==
--- NOTE | 2017-09-22 13:11 | REP ---
RIGHT UPPER QUADRANT ULTRASOUND: Real-time sonographic evaluation of the right upper quadrant performed. Gallbladder demonstrates no gallstones. There is no gallbladder wall thickening. There is no free fluid. There is no intrahepatic or extrahepatic biliary dilatation, common bile duct measuring 4 mm in diameter. There appears to be diffuse increased echotexture of the liver suggesting diffuse fatty infiltration. Pancreas is grossly unremarkable. Right kidney demonstrates no hydronephrosis with normal size at 11.2 cm in length. There is a cyst in the lower pole of the right kidney 1.5 x 1.4 x 1.2 cm. IMPRESSION: No gallstones or biliary dilatation. No free fluid. Diffuse fatty infiltration of the liver. Right renal cyst. Signed by Siddhartha Silver MD 09/23/2017 04:27 P
== END ==
LOC: M LRY 08:24
PROVIDERS: ATTEND Family Medicine
DX: R10.13 Epigastric pain (principal)

== ENCOUNTER → 2017-09-22 | Outpatient (REF) | payer BC ==
[2017-09-22 12:55] LABS: ALKALINE PHOSPHATASE 132 U/L (45-117); GAMMA GLUTAMYLTRANSPEPTIDASE 16 U/L (5-55)
== END ==
LOC: M SFHCLERA 08:19
PROVIDERS: ATTEND Family Medicine
DX: R74.8 Abnormal levels of other serum enzymes (principal)

== ENCOUNTER → 2018-03-26 | Outpatient (CLI) | payer BC ==
[2018-03-26 13:07] LABS: HEMOGLOBIN 14.6 g/dl (12.0-15.5); INR 0.91; MEAN CORPUSCULAR HEMOGLOBIN 31.5 pg (27.0-33.0); MEAN CORPUSCULAR VOLUME 92.7 fl (80.0-96.0); PLATELET COUNT, AUTOMATED 262 10^3/uL (150-450); PROTHROMBIN TIME 12.3 SECONDS (12.4-14.5); RED BLOOD COUNT 4.64 10^6/uL (4.00-5.40); RED CELL DISTRIBUTION WIDTH 12.4 % (11.5-14.5); WHITE BLOOD COUNT 9.2 10^3/uL (4.0-10.0)
[2018-03-26 13:35] LABS: HEPATITIS B SURFACE ANTIBODY NEGATIVE (POSITIVE)
[2018-03-26 13:42] LABS: ALBUMIN 3.9 GM/DL (3.2-5.2); ALKALINE PHOSPHATASE 112 U/L (45-117); ALT/SGPT 22 U/L (12-78); ANION GAP 6 MEQ/L (8-16); AST/SGOT 14 U/L (7-37); BILIRUBIN,TOTAL 1.1 MG/DL (0.2-1.0); BLOOD UREA NITROGEN 11 MG/DL (7-18); CALCIUM LEVEL 8.3 MG/DL (8.5-10.1); CARBON DIOXIDE LEVEL 26 MEQ/L (21-32); CHLORIDE LEVEL 110 MEQ/L (98-107); CREATININE FOR GFR 0.61 MG/DL (0.55-1.30); FERRITIN 57 NG/ML (8-252); GLOMERULAR FILTRATION RATE > 60.0 (>51); GLUCOSE, FASTING 94 MG/DL (70-100); IMMUNOGLOBULIN G 726 MG/DL (681-1648); IRON (FE) 80 UG/DL (50-170); PERCENT SATURATION 23.3 % (13.2-45.0); POTASSIUM SERUM 4.5 MEQ/L (3.5-5.1); SODIUM LEVEL 142 MEQ/L (136-145); TOTAL IRON BINDING CAPACITY 344 UG/DL (250-450); TOTAL PROTEIN 6.9 GM/DL (6.4-8.2)
[2018-03-26 13:46] LABS: HEPATITIS B SURFACE ANTIGEN NEGATIVE (NEGATIVE)
[2018-03-26 14:15] LABS: HEPATITIS A ANTIBODY IGM NEGATIVE (NEGATIVE)
[2018-03-29 14:11] LABS: ANTI-MITOCHONDRIAL ANTIBODY 28.6 Units (0.0-20.0); ANTINUCLEAR ANTIBODIES DIRECT Negative (Negative); CERULOPLASMIN 21.9 mg/dL (19.0-39.0); HBV HBV DNA not detected IU/mL (.); HEPATITIS A IgG TOTAL Positive (Negative); HEPATITIS B CORE ANTIBODY IGG Positive (Negative); HEPATITIS BE ANTIBODY Negative (Negative); TRANSFERRIN 277 mg/dL (200-370)
[2018-03-29 14:11] LABS: HEPATITIS BE ANTIGEN Negative (Negative)
[2018-03-30 00:06] LABS: A1A FOR PHENOTYPE 121 mg/dL (90-200)
[2018-03-31 13:31] LABS: F-ACTIN IgG AUTOANTIBODIES 11 UNITS
== END ==
LOC: M LAB 11:18
DX: R79.89 Other specified abnormal findings of blood chemistry (principal); Z12.31 Encounter for screening mammogram for malignant neoplasm of breast
CPT/HCPCS: 80053

== ENCOUNTER → 2018-03-26 | Outpatient (CLI) | payer BC | LOC: M RAD 12:05 | DX: Z12.31 Encounter for screening mammogram for malignant neoplasm of breast (principal) | CPT/HCPCS: 77067 ==

== ENCOUNTER → 2018-05-21 | Outpatient (CLI) | payer BC ==
[2018-05-21 14:38] LABS: ALBUMIN/GLOBULIN RATIO 1.48 (1.00-1.93); ALKALINE PHOSPHATASE 77 U/L (45-117); ALT/SGPT 31 U/L (12-78); ANION GAP 8 MEQ/L (8-16); AST/SGOT 18 U/L (7-37); BILIRUBIN,TOTAL 1.5 MG/DL (0.2-1.0); BLOOD UREA NITROGEN 8 MG/DL (7-18); CALCIUM LEVEL 8.5 MG/DL (8.5-10.1); CARBON DIOXIDE LEVEL 26 MEQ/L (21-32); CHLORIDE LEVEL 110 MEQ/L (98-107); CREATININE FOR GFR 0.68 MG/DL (0.55-1.30); GLOMERULAR FILTRATION RATE > 60.0 (>51); GLUCOSE, FASTING 94 MG/DL (70-100); POTASSIUM SERUM 4.3 MEQ/L (3.5-5.1); SODIUM LEVEL 144 MEQ/L (136-145); TOTAL PROTEIN 6.7 GM/DL (6.4-8.2)
[2018-05-21 15:35] LABS: BASO # 0.1 10^3/uL (0.0-0.2); BASO % 0.7 % (0.0-1.0); EOS # 0.2 10^3/uL (0.0-0.50); EOS % 2.4 % (0.0-3.0); HEMATOCRIT 42.2 % (36.0-47.0); HEMOGLOBIN 14.5 g/dl (12.0-15.5); IMMATURE GRANULOCYTE % 0.3 % (0-3.0); LYMPH # 2.8 10^3/uL (1.5-4.5); LYMPH % 27.7 % (24.0-44.0); MEAN CORPUSCULAR HEMOGLOBIN 31.7 pg (27.0-33.0); MEAN CORPUSCULAR HGB CONC 34.4 g/dl (32.0-36.5); MEAN CORPUSCULAR VOLUME 92.1 fl (80.0-96.0); MONO # 0.7 10^3/uL (0.0-0.8); MONO % 6.8 % (0.0-5.0); NEUTROPHILS # 6.3 10^3/uL (1.8-7.7); NEUTROPHILS % 62.1 % (36.0-66.0); PLATELET COUNT, AUTOMATED 242 10^3/uL (150-450); RED BLOOD COUNT 4.58 10^6/uL (4.00-5.40); RED CELL DISTRIBUTION WIDTH 12.1 % (11.5-14.5); WHITE BLOOD COUNT 10.2 10^3/uL (4.0-10.0)
== END ==
LOC: M LAB 12:50
DX: R10.11 Right upper quadrant pain (principal)
CPT/HCPCS: 80053

== ENCOUNTER → 2018-06-04 | Outpatient (CLI) | payer BC | LOC: M RAD 06:36 | DX: R10.11 Right upper quadrant pain (principal); R11.0 Nausea; K76.0 Fatty (change of) liver, not elsewhere classified; N28.1 Cyst of kidney, acquired | CPT/HCPCS: 76705 ==

== ENCOUNTER → 2019-04-06 | Outpatient (CLI) | payer OTHER ==
[~2019-04-06] MED LIST changes: -AMLO5TAB2 PO; +AMLO5TAB6 PO; -ASPI81CH PO; +ASPI81CH49 PO
--- NOTE | 2019-04-06 14:10 | REPMRS ---
Patient History The patient states she has not had a clinical breast exam in over a year. Family history of prostate cancer at age 74 in father. Took hormonal contraceptives for 7 years. Took estrogen for 1 year. Digital Mammo Screening Bilat: April 06, 2019 - Exam #: [id number] Bilateral CC and MLO view(s) were taken. Technologist: Mandi Agutsin Technologist Prior study comparison: March 26, 2018, bilateral digital mammo screening bilat performed at [facility]. March 12, 2017, bilateral digital mammo screening bilat performed at [facility]. FINDINGS: There are scattered fibroglandular densities. There has been no change in the appearance of the mammogram from the prior studies. There is a mild amount of residual fibroglandular tissue which is fairly symmetric. There is no interval development of dominant mass, architectural distortion, or clustered microcalcification suggestive of malignancy. Assessment: BI-RADS/ACR category 1 mammogram. Negative Mammogram. Recommendation Routine screening mammogram in 1 year (for women over age 40). This mammogram was interpreted with the aid of an FDA-approved computer-aided dectection system. Electronically Signed By: Siddhartha Silver MD 04/06/19 [id number]
== END ==
LOC: M RAD 13:38
PROVIDERS: ATTEND Internal Medicine
DX: Z12.31 Encounter for screening mammogram for malignant neoplasm of breast (principal); Z92.0 Personal history of contraception

== ENCOUNTER → 2021-04-24 | Outpatient (CLI) | payer OTHER ==
[~2021-04-24] MED LIST changes: +AMLO1TAB24 PO; -AMLO5TAB6 PO
--- NOTE | 2021-04-24 14:36 | REPMRS ---
Patient History The patient states she has not had a clinical breast exam in over a year. Family history of prostate cancer at age 74 in father. Took hormonal contraceptives for 7 years. Took estrogen for 1 year. Patient states no breast complaints today. Patient has signed MRS History Sheet. Digital Woman Screen Mammo: April 24, 2021 - Exam #: [id number] Bilateral CC and MLO view(s) were taken. Technologist: Joaquina Cline, Technologist Prior study comparison: April 06, 2019, bilateral digital mammo screening bilat, performed at [facility]. March 26, 2018, bilateral digital mammo screening bilat, performed at [facility]. March 12, 2017, bilateral digital mammo screening bilat, performed at [facility]. FINDINGS: The breast tissue is almost entirely fat. The Volpara volumetric breast density category is: A. There has been no change in the appearance of the mammogram from the prior studies. There is no interval development of dominant mass, architectural distortion, or grouped microcalcification typical of malignancy. 3-D tomosynthesis shows no additional findings. Assessment: BI-RADS/ACR category 1 mammogram. Negative Mammogram. Recommendation Routine screening mammogram of both breasts in 1 year (for women over age 40). This patient's [facility] Lifetime Breast Cancer RIsk is estimated at 6.2 %. This mammogram was interpreted with the aid of an FDA-approved computer-aided dectection system. Electronically Signed By: Jeremías Miranda MD 04/24/21 0575
== END ==
LOC: M WHC 12:24
PROVIDERS: ATTEND Internal Medicine
DX: Z12.31 Encounter for screening mammogram for malignant neoplasm of breast (principal)

== ENCOUNTER 2023-02-11 17:43 | Emergency (ER) | payer BC, OTHER ==
[~2023-02-11] VITALS: Ht 170.2 cm; Wt 88.4 kg
[~2023-02-11 17:43] MED LIST changes: +ALBU8.5H INH; +ALPR0.5T3 PO; +ERGO500029 PO; +HYDR-3490 PO; +LEVO100T5 PO; +LOSA100T45 PO; +MOME110A INH; +PROL60SO SC; +PROZ20CA11 PO; +ROSU40TA4 PO; +SIMV40TA20 PO; +SYNT88TA2 PO; +VITA100093 PO; +VITMTA PO; +ZYRT10TA12 PO
[2023-02-11 19:46] VITALS: BP 120/88
== END 2023-02-11 19:54 | disposition home or self-care (01) ==
LOC: M ED 17:43
DX: H92.11 Otorrhea, right ear (principal); I10 Essential (primary) hypertension; J44.9 Chronic obstructive pulmonary disease, unspecified; J45.909 Unspecified asthma, uncomplicated; F41.9 Anxiety disorder, unspecified; Z87.891 Personal history of nicotine dependence; Z79.52 Long term (current) use of systemic steroids; Z79.811 Long term (current) use of aromatase inhibitors; Z79.899 Other long term (current) drug therapy

== ENCOUNTER → 2023-08-20 | Outpatient (CLI) | payer OTHER ==
[~2023-08-20] MED LIST changes: -LOSA100T45 PO; +LOSA100T46 PO
== END ==
LOC: M WHC 15:24
PROVIDERS: ATTEND Internal Medicine
DX: Z12.31 Encounter for screening mammogram for malignant neoplasm of breast (principal)

== ENCOUNTER → 2024-08-22 | Outpatient (CLI) | payer OTHER ==
[~2024-08-22] MED LIST changes: -ROSU40TA4 PO; +ROSU40TA81 PO
== END ==
LOC: M WHC 13:18
PROVIDERS: ATTEND Internal Medicine
DX: Z12.31 Encounter for screening mammogram for malignant neoplasm of breast (principal); R92.313 Mammographic fatty tissue density, bilateral breasts